=== PATIENT | female | born 1995 | race Caucasian/White ===

== ENCOUNTER 2020-08-25 08:35 | Emergency (ER) | payer MEDICAID, SELFPAY ==
--- NOTE | ~2020-08-25 | XR_ITS ---
EXAMINATION: XR CHEST CLINICAL INFORMATION: Cough. COMPARISON: 02/07/2014 TECHNIQUE: Frontal view of the chest was obtained. FINDINGS: No significant abnormality is noted involving the heart, lungs, mediastinum, bony thorax or soft tissues. XR/XR chest 1V IMPRESSION: Unremarkable chest examination.
[2020-08-25 08:50] VITALS: BP 129/94; PULSE 73; RESP 16; TEMP 36.9; O2SAT 98; BMI 20.9
[2020-08-25 09:51] LABS: COVID-19 Test Negative (Negative)
--- NOTE | 2020-08-25 09:58 | ED.URI ---
HPI - URI/Sore Throat General Chief Complaint: Upper Respiratory Symptoms <ZACHARIAH Earl Last Filed: 08/25/20 10:22> Stated Complaint: FLU SYMPTONS <ZACHARIAH Earl Last Filed: 08/25/20 10:22> Time Seen by Provider: 08/25/20 08:57 <ZACHARIAH Earl Last Filed: 08/25/20 10:22> Source: patient <ZACHARIAH Earl Last Filed: 08/25/20 10:22> Mode of arrival: ambulatory <ZACHARIAH Earl Last Filed: 08/25/20 10:22> History of Present Illness HPI Narrative: 25-year-old female with no significant past medical history presenting to the ED complaining of left ear pain, dry cough, diarrhea, myalgias, nausea, headache, rhinorrhea x4 weeks. Admits was tested for COVID-19 last week and negative. Did have COVID-19 positive contact. Denies fever, chills, recent travel, chest pain, shortness of breath <ZACHARIAH Earl Last Filed: 08/25/20 10:22> MD elicited complaint: sore throat and rhinorrhea <ZACHARIAH Earl Last Filed: 08/25/20 10:22> Related Data Home Medications: Previous Rx's Medication Instructions Recorded benzonatate [Tessalon Perles] 100 mg PO TID PRN #14 cap 08/25/20 fluticasone propionate [Flonase 2 spray INTRANASAL DAILY #16 g 08/25/20 Allergy Relief] <ZACHARIAH Earl Last Filed: 08/25/20 10:22> Allergies/Adverse Reactions: Allergies Allergy/AdvReac Type Severity Reaction Status Date / Time No Known Allergies Allergy Unverified 12/20/19 18:31 [No Known Allergies*] <ZACHARIAH Earl Last Filed: 08/25/20 10:22> Review of Systems Review of Systems: Constitutional: No Weight loss, No Fever, No Chills, No Fatigue, No Malaise ENT/Mouth: No Hearing loss, + Ear Pain, + Nasal Congestion, No Sinus Pain, No Hoarseness, + sore throat, + Rhinorrhea, No Swallowing Difficulty Eyes: No Eye Pain, No Swelling, No Redness, No Vision Changes Cardiovascular: No Chest Pain, No SOB, No Palpitations Respiratory: + Cough, No Sputum, No Wheezing Gastrointestinal: + Nausea, + Vomiting, No Diarrhea, No Constipation, No Abdominal pain Musculoskeletal: No joint pain, + Myalgias, No Joint Swelling Skin: No Skin Lesions, No rash Neuro: No Weakness, +Headache <ZACHARIAH Earl - Last Filed: 08/25/20 10:22> Yes all other systems are reviewed and are negative <AZCHARIAH Earl - Last Filed: 08/25/20 10:22> [facility] Past Medical History Attestation statement: The following information was validated with the patient. <ZACHARIAH Earl - Last Filed: 08/25/20 10:22> Social History Social History: Social History Advance Directives: Yes Advance Directives Information Provided: No Advance Directives on File: No Patient : No <ZACHARIAH Earl - Last Filed: 08/25/20 10:22> Physical Exam Vital Signs: Vital Signs: Last Vital Signs Temp 98.5 F 08/25/20 08:50 Pulse 73 08/25/20 08:50 Resp 16 08/25/20 08:50 BP 129/94 H 08/25/20 08:50 Pulse Ox 98 08/25/20 08:50 Body Mass Index 20.9 <ZACHARIAH Earl - Last Filed: 08/25/20 10:22> Vital Signs: Last Vital Signs Temp 98.5 F 08/25/20 08:50 Pulse 73 08/25/20 08:50 Resp 16 08/25/20 08:50 BP 129/94 H 08/25/20 08:50 Pulse Ox 98 08/25/20 08:50 Body Mass Index 20.9 <Doroteo Madison MD - Last Filed: 09/19/20 09:54> Const: General: cooperative, healthy appearing and no acute distress <ZACHARIAH Earl - Last Filed: 08/25/20 10:22> Orientation/consciousness: patient oriented x3 <ZACHARIAH Earl Last Filed: 08/25/20 10:22> Limitations: no limitations <ZACHARIAH Earl Last Filed: 08/25/20 10:22> HENMT: Head: Yes normal to inspection and Yes atraumatic <Yamilet Pal [facility] Last Filed: 08/25/20 10:22> Ears: hearing grossly normal bilaterally, external ears normal, TM's normal bilaterally and normal mastoids bilaterally <Yamilet Pal [facility] Last Filed: 08/25/20 10:22> General nose exam: Normal external nose present <Yamilet Pal [facility] Last Filed: 08/25/20 10:22> Face and sinus: Yes normal facial exam <Yamilet Pal [facility] Last Filed: 08/25/20 10:22> Mouth: Normal oral and palatal mucosa present <Yamilet Pal [facility] Last Filed: 08/25/20 10:22> Throat: Yes posterior oropharynx normal, Yes tonsils normal, Yes uvula midline, No peritonsillar mass, No uvula laterally displaced and No uvular edema <Yamilet Pal [facility] Last Filed: 08/25/20 10:22> Eyes: General: appearance normal, both eyes and all related structures <Yamilet Pal [facility] Last Filed: 08/25/20 10:22> EOM: EOMs intact bilaterally <Yamilet Pal [facility] Last Filed: 08/25/20 10:22> Neck: Neck: Yes normal visual inspection, Yes no lymphadenopathy and Yes no meningeal signs <Yamilet Pal [facility] Last Filed: 08/25/20 10:22> Resp: Effort & Inspection: normal respiratory effort <Yamilet Pal [facility] Last Filed: 08/25/20 10:22> Auscultation: clear to auscultation bilaterally, no rales, no rhonchi and no wheezes <Yamilet Pal [facility] Last Filed: 08/25/20 10:22> Cardio: Rate: regular rate <Yamilet Pal [facility] Last Filed: 08/25/20 10:22> Heart sounds: S1 normal heart sound present and S2 normal heart sound present <Yamilet Pal [facility] Last Filed: 08/25/20 10:22> Skin: Rashes: no rashes <Yamilet Pal [facility] Last Filed: 08/25/20 10:22> Wounds: no wounds <Yamilet Pal [facility] Last Filed: 08/25/20 10:22> Neuro: General: patient oriented x3 and no meningeal signs <ZACHARIAH Earl - Last Filed: 08/25/20 10:22> Gait exam (Neuro): Normal gait present <ZACHARIAH Earl - Last Filed: 08/25/20 10:22> Extrem: General: Yes normal to inspection <ZACHARIAH Earl - Last Filed: 08/25/20 10:22> Course Course Course Narrative: XR chest 1V IMPRESSION: Unremarkable chest examination. -1000--COVID-19 negative. Results discussed with patient including worrisome signs and symptoms and strict return precautions, she verbalized understanding feel safe for discharge home <ZACHARIAH Earl - Last Filed: 08/25/20 10:22> I have reviewed the chart <Doroteo Madison MD - Last Filed: 09/19/20 09:54> MDM - URI/Sore Throat MDM Narrative Medical decision making narrative: 25-year-old female with no significant past medical history presenting to the ED complaining of left ear pain, dry cough, diarrhea, myalgias, nausea, headache, rhinorrhea x4 weeks. On exam VSS, NAD/well-appearing, exam nonfocal. Concern for viral syndrome vs COVID-19. Unlikely pneumonia/PE/ACS. Exam not consistent with strep pharyngitis new line plan: COVID-19 testing, CXR <ZACHARIAH Earl - Last Filed: 08/25/20 10:22> Differential Diagnosis Differential diagnosis: Likely upper respiratory infection <ZACHARIAH Earl - Last Filed: 08/25/20 10:22> Lab Data Labs: Lab Results 08/25/20 Range/Units 08:54 COVID-19 (DINESH) Negative (Negative) COVID-19 Clin Com See Note <ZACHARIAH Earl - Last Filed: 08/25/20 10:22> Lab Results 08/25/20 Range/Units 08:54 COVID-19 (DINESH) Negative (Negative) COVID-19 Clin Com See Note <Doroteo Madison MD - Last Filed: 09/19/20 09:54> Discharge Plan Discharge Clinical Impression: Upper respiratory infection <ZACHARIAH Earl - Last Filed: 08/25/20 10:22> Patient Disposition: Home, Self-Care <ZACHARIAH Earl - Last Filed: 08/25/20 10:22> Instructions: Viral Syndrome (ED) <ZACHARIAH Earl - Last Filed: 08/25/20 10:22> Additional Instructions: Your COVID was negative Your Chest x-ray was unremarkable Rest, stay hydrated Tessalon Perles for cough, Flonase Allergy Relief will help with nasal congestion, follow-up with her doctor If her symptoms persist or worsen, you have fevers, cough becomes constant worsening return to the ED <ZACHARIAH Earl - Last Filed: 08/25/20 10:22> Prescriptions: New fluticasone propionate [Flonase Allergy Relief] 50 mcg/actuation spray,suspension 2 spray intranasal DAILY Qty: 16 RF: 0 benzonatate [Tessalon Perles] 100 mg capsule 100 mg PO TID PRN (Reason: cough) Qty: 14 RF: 0 <ZACHARIAH Earl - Last Filed: 08/25/20 10:22> Referrals: Physician,Unknown [Primary Care Provider] - 2 days <ZACHARIAH Earl - Last Filed: 08/25/20 10:22> Stand Alone Forms: Work/School Release <ZACHARIAH Earl - Last Filed: 08/25/20 10:22> Interventions: ED Discharge Assessment Last Done: 08/25/20 10:26 <ZACHARIAH Earl - Last Filed: 08/25/20 10:22> Discharge Date/Time: 08/25/20 10:54 <ZACHARIAH Earl - Last Filed: 08/25/20 10:22>
== END 2020-08-25 10:54 | disposition home or self-care (01) ==
PROVIDERS: Emergency Provider Emergency Medicine
DX: J06.9 Acute upper respiratory infection, unspecified (principal); Z20.822 Contact with and (suspected) exposure to COVID-19
CPT/HCPCS: 36415; 71045; 87635; 99283

== ENCOUNTER 2022-07-26 10:29 | Emergency (ER) | payer MEDICAID, SELFPAY ==
--- NOTE | ~2022-07-26 | XR_ITS ---
EXAMINATION: XR CHEST CLINICAL INFORMATION: Cough COMPARISON: Previous chest x-ray August 2020 TECHNIQUE: 2 views of the chest were obtained. FINDINGS: No significant abnormality is noted involving the heart, lungs, mediastinum, bony thorax or soft tissues. XR/XR chest 2V IMPRESSION: Unremarkable examination.
[2022-07-26 10:48] VITALS: BP 116/70; PULSE 92; RESP 18; TEMP 36.9; O2SAT 98; BMI 21.9
[2022-07-26 11:57] LABS: COVID-19 Test Negative (Negative); IDNOW Serial# 08D9AD1C
--- OUTSIDE RECORDS SUMMARY | 2022-07-26 16:53 | XMS_ITS | Continuity of Care Document ---
Author Name Unknown Organization [facility] Address Unknown Care Team Providers Care Car Hostler Name Role Phone Not on Staff, PCP Primary Care Physician Unavail able Encounter [facility] Date(s): 10/07/21 - [facility]/22/[facility] Attending Physician: Not on Staff, Attending MD Referring Physician: Charlotte Cartwright CNM Allergies, Adverse Reactions, Alerts Substance Reaction Severity Status Adhesive Bandage Active Immunizations Given and Recorded Vaccine Date Status Refusal Reason tetanus/diphtheria/pertussis, acel(Tdap) 03/25/20 Given Medications Depo-Provera Contraceptive 150 mg/mL intramuscular suspension 1 mL = 150 mg, Intramuscular, Every 3 months, # 1 mL, 4 Refills, Maintenance, 10/04/21 14:42:00 EDT, Suspension, [facility], Partial fill upon patient request if the prescription is for a schedule II opioid drug., 152, cm, 04/28/20 9:... Start Date: 10/04/21 Status: Ordered Depo-Provera Contraceptive 150 mg/mL intramuscular suspension 1 mL = 150 mg, Intramuscular, Every 3 months, # 1 mL, 3 Refills, Maintenance, 06/07/21 16:57:00 EST, Suspension, [facility], Partial fill upon patient request if the prescription is for a schedule II opioid drug., 152, cm, 04/28/20 9:... Start Date: 06/07/21 Stop Date: 06/02/22 Status: Ordered ferrous sulfate 325 mg oral tablet 1 tablet = 325 mg, By Mouth, 2 times a day, # 90 tablet, 1 Refills, Maintenance, 03/27/20 10:47:00 EST, Tablet, [facility]/pharmacy #[id number], 153, cm, 03/25/20 13:07:00 EST, Height, 53.2, kg, 03/24/20 14:22:00EST, Dry Weight Start Date: 03/27/20 Status: Ordered Freestyle Lite Lancets See Instructions, # 200 each, Refills 5, Tot. Refills 5, Maintenance, use QID to test blood sugars,03/06/20 10:29:00 EST, Supply, 153, cm, 03/06/20 9:52:00 EST, Height, 52.15, kg, 03/06/20 9:52:00 EST, Dry Weight Start Date: 03/06/20 Stop Date: 09/02/20 Status: Ordered Freestyle Lite Monitor See Instructions, # 1 each, Refills 0, Tot. Refills 0, Maintenance, use QID to test blood sugars, 03/06/20 10:29:00 EST, Supply, 153, cm, 03/06/20 9:52:00 EST, Height, 52.15, kg, 03/06/20 9:52:00 EST, Dry Weight Start Date: 03/06/20 Stop Date: 04/05/20 Status: Ordered Freestyle Lite Test Strips See Instructions, # 200 each, Refills 5, Tot. Refills 5, Maintenance, use QID to test blood sugars,03/06/20 10:29:00 EST, Supply, 153, cm, 03/06/20 9:52:00 EST, Height, 52.15, kg, 03/06/20 9:52:00 EST, Dry Weight Start Date: 03/06/20 Stop Date: 09/02/20 Status: Ordered Pepcid 20 mg oral tablet 1 tablet = 20 mg, By Mouth, 2 times a day, # 120 tablet, 0 Refills, Maintenance, 03/06/20 10:14:00 EST, Tablet, [facility]/pharmacy #[id number], Partial fill upon patient request if the prescription is for a schedule II opioid drug., 153, cm, 03/06/20 9:52:00 EST,... Start Date: 03/06/20 Stop Date: 05/05/20 Status: Ordered Prometrium 200 mg oral capsule 1 capsule = 200 mg, Vaginally, Daily at bedtime, # 30 capsule, 3 Refills, Maintenance, 03/27/20 10:53:00 EST, [id number], 153, cm, 03/25/20 13:07:00 EST, Height, 53.2, kg, 03/24/20 14:22:00 EST, Dry Weight Start Date: 03/27/20 Status: Ordered Rubbing Alcohol Wipes 70% topical pad See Instructions, Use QID to test blood sugars, # 1 each, 5 Refills, Maintenance, 03/06/20 10:29:00EST, [id number], Partial fill upon patient request, Use QID to test blood sugars, 153, cm, 03/06/20 9:52:00 EST, Height, 52.15, kg, 03/06/20 9:... 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
--- OUTSIDE RECORDS SUMMARY | 2022-07-26 16:53 | XMS_ITS | Continuity of Care Document ---
Author Name Unknown Organization [facility] Address [address] [place] [id number]- Care Team Providers Care Typing Teacher Name Role Phone Not on Staff, PCP Primary Care Physician Unavail able Encounter [facility] Date(s): 01/15/22 - 03/11/22 [facility] and [address] [address]- Attending Physician: Not on Staff, Attending MD Referring Physician: Mendy ARMSTRONG MRI TECHNICIAN, Bull Peterson Allergies, Adverse Reactions, Alerts Substance Reaction Severity Status Adhesive Bandage Active Immunizations Given and Recorded Vaccine Date Status Refusal Reason tetanus/diphtheria/pertussis, acel(Tdap) 03/25/20 Given Medications Depo-Provera Contraceptive 150 mg/mL intramuscular suspension 1 mL = 150 mg, Intramuscular, Every 3 months, # 1 mL, 4 Refills, Maintenance, 10/04/21 14:42:00 EDT, Suspension, [facility], Partial fill upon patient request if the prescription is for a schedule II opioid drug., 152, cm, 04/28/20 9:... Start Date: 10/04/21 Status: Ordered Depo-Provera Contraceptive 150 mg/mL intramuscular suspension 1 mL = 150 mg, Intramuscular, Every 3 months, # 1 mL, 3 Refills, Maintenance, 06/07/21 16:57:00 EST, Suspension, [facility], Partial fill upon patient request if the prescription is for a schedule II opioid drug., 152, cm, 04/28/20 9:... Start Date: 06/07/21 Stop Date: 06/02/22 Status: Ordered ferrous sulfate 325 mg oral tablet 1 tablet = 325 mg, By Mouth, 2 times a day, # 90 tablet, 1 Refills, Maintenance, 03/27/20 10:47:00 EST, Tablet, [facility]/pharmacy #[id number], 153, cm, 03/25/20 13:07:00 EST, Height, [...] 0 Refills, Maintenance, 03/06/20 10:14:00 EST, Tablet, [facility]/pharmacy #[id number], Partial fill upon patient request if [...] Date: 03/06/20 Status: Ordered Problem List Condition Confirmation Course Effective Dates Status Health St atus Informant Anemia 1 Confirmed Active Size of fetus inconsistent with dates in third trimester Confirmed Active with 32 completed weeks gestation Confirmed Active History of delivery 2, 3 Confirmed Active History of gestational diabetes Confirmed 2018 Active Anxiety and depression Confirmed Active hisotry of Post- depression Confirmed 2016 Active 1iron infusions with in past 2pprom 33+5 with at 34 wks on 04/03/2020 3Spontaneous at 36w per patient hx Social History Social History Type Response Smoking Status Never smoker; Tobacc o user in household: No entered on: 08/08/14 Sex Patient Care team information Care Team Personnel Name: Not on Staff, PCP Position: [facility] Physician (General Medicine) Member Role: PCP Name: Sara Alicea RN Position: [facility] OB RN Member Role: Primary Care Nurse Care Team Related Persons Name: PAO ALBERTO Address: [address] Address: [address] [place] [address] Name: PIERO CLOUD Name: SHAD CLOUD Address: [address] [place] [address] Name: BABATUNDE RAMIREZ Address: home [address] [place] [id number]
--- OUTSIDE RECORDS SUMMARY | 2022-07-26 16:53 | XMS_ITS | Continuity of Care Document ---
Author Name Unknown [facility] Address [address] [address]- Care Team Providers Care Glass Wool Blanket Machine Feeder Name Role Phone Not on Staff, PCP Primary Care Physician Unavail able Encounter [facility] Date(s): 03/31/20 - 04/30/20 [facility] [address] [address] Allergies, Adverse Reactions, Alerts Substance Reaction Severity Status Adhesive Bandage Active Immunizations Given and Recorded Vaccine Date Status Refusal Reason tetanus/diphtheria/pertussis, acel(Tdap) 03/25/20 Given Medications ferrous sulfate 325 mg oral tablet 1 tablet = 325 mg, By Mouth, 2 times a day, # 90 tablet, 1 Refills, Maintenance, 03/27/20 10:47:00 EST, Tablet, [id number], 153, cm, 03/25/20 13:07:00 EST, [...] 0 Refills, Maintenance, 03/06/20 10:14:00 EST, Tablet, [id number], Partial fill upon patient request if [...]
--- OUTSIDE RECORDS SUMMARY | 2022-07-26 16:53 | XMS_ITS | Continuity of Care Document ---
Author Name Unknown Organization [facility] Address [address] [place] [id number]- Care Team Providers Care Data Sme Name Role Phone Not on Staff, PCP Primary Care Physician Unavail able Encounter [facility] Date(s): 05/03/22 - 06/02/22 [facility] and [address] [address]- Attending Physician: Luis Herrera Admitting Physician: Luis Herrera Referring Physician: AdmtrLuis Allergies, Adverse Reactions, Alerts Substance Reaction Severity Status Adhesive Bandage Active Immunizations Given and Recorded Vaccine Date Status Refusal Reason tetanus/diphtheria/pertussis, acel(Tdap) 03/25/20 Given Medications Depo-Provera Contraceptive 150 mg/mL intramuscular suspension 1 mL = 150 mg, Intramuscular, Every 3 months, # 1 mL, 4 Refills, Maintenance, 10/04/21 14:42:00 EDT, Suspension, [facility], Partial fill upon patient request if the prescription is for a schedule II opioid drug., 152, cm, 04/28/20 9:... Start Date: 10/04/21 Status: Ordered Depo-Provera Contraceptive 150 mg/mL intramuscular suspension 1 mL = 150 mg, Intramuscular, Every 3 months, # 1 mL, 3 Refills, Maintenance, 06/07/21 16:57:00 EST, Suspension, [facility], Partial fill upon patient request if the prescription is for a schedule II opioid drug., 152, cm, 04/28/20 9:... Start Date: 06/07/21 Stop Date: 06/02/22 Status: Ordered ferrous sulfate 325 mg oral tablet 1 tablet = 325 mg, By Mouth, 2 times a day, # 90 tablet, 1 Refills, Maintenance, 03/27/20 10:47:00 EST, Tablet, [facility]/pharmacy #[id number], 153, cm, 03/25/20 13:07:00 EST, Height, [...] 0 Refills, Maintenance, 03/06/20 10:14:00 EST, Tablet, [facility]/pharmacy #[id number], Partial fill upon patient request if [...] Confirmed Active hisotry of Post- depression Confirmed 2017 Active 1iron infusions with in past 2pprom 33+5 with at 34 wks on 04/03/2020 3Spontaneous at 36w per patient hx Social History Social History Type Response Smoking Status Never smoker; Tobacc o user in household: No entered on: 08/08/14 Sex Patient Care team information Care Team Personnel Name: Not on Staff, PCP Position: [facility] Physician (General Medicine) Member Role: PCP Name: Sara Alicea RN Position: [facility] OB RN Member Role: Primary Care Nurse Care Team Related Persons Name: PAO ALBERTO Address: [address] Address: [address] [place] [address] Name: PIERO CLOUD Name: SHAD CLOUD Address: home [address] [facility] [place] [address] Name: BABATUNDE RAMIREZ Address: home [address] [place] [address]
--- OUTSIDE RECORDS SUMMARY | 2022-07-26 16:53 | XMS_ITS | Continuity of Care Document ---
Author Name Unknown Organization [facility] Address [address] [address]- Care Team Providers Care Superintendent Nonselling Name Role Phone Not on Staff, PCP Primary Care Physician Unavail able [facility]counter [facility] Date(s): 11/06/19 - 12/06/19 [facility] [address] [address]- [facility] Allergies, Adverse Reactions, Alerts Substance Reaction Severity Status Adhesive Bandage Active Medications Ensure Plus Ensure Plus, See Instructions, # 90 each, Refills 4, Tot. Refills 4, Maintenance, Three times per day, 11/28/19 16:31:00 EDT, Compound Start Date: 11/28/19 Status: Ordered Ensure Plus Ensure Plus, See Instructions, # 90 each, Refills 4, Tot. Refills 4, Maintenance, Three times per day, 12/04/19 16:11:00 EDT, Supply Start Date: 12/04/19 Status: Ordered Flintstones Complete Multiple Vitamins with Minerals oral tablet, chewable 1 tablet, Chew, 2 times a day, # 120 tablet, 3 Refills, Maintenance, 10/29/19 11:24:00 EDT, Chew Tablet, [id number], 1 tablet Chew 2 times a day,x60 days, 153, cm, 10/29/19 10:58:00 EDT, Height, 45, kg, 09/27/19 17:39:00 EDT, Dry Weight Start Date: 10/29/19 Stop Date: 06/25/20 Status: Ordered Flintstones Complete Multiple Vitamins with Minerals oral tablet, chewable 1 tablet, Chew, 2 times a day, # 60 tablet, 5 Refills, Maintenance, 11/14/19 14:07:00 EDT, Chew Tablet, [id number], 1 tablet Chew 2 times a day,x30 days, 153, cm, 11/14/19 13:48:00 EDT, Height, 44.4, kg, 11/14/19 13:48:00 EDT, Dry Weight Start Date: 11/14/19 Stop Date: 05/12/20 Status: Ordered promethazine 25 mg rectal suppository 1 supp = 25 mg, Rectally, Every 6 hours, PRN Nausea & Vomiting, # 15 supp, 1 Refills, Maintenance, 11/06/19 15:49:00 EDT, Suppository, [id number], 153, cm, 10/29/19 12:31:00 EDT, Height, 45, kg, 10/29/19 12:31:00 EDT, Dry Weight Start Date: 11/06/19 Status: Ordered Problem List Condition Effective Dates Status Health Status Inform ant Anemia(Confirmed) 1 Active History of gestational diabetes(Confirmed) 2019 Active Anxiety and depression(Confirmed) Active 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
--- OUTSIDE RECORDS SUMMARY | 2022-07-26 16:53 | XMS_ITS | Continuity of Care Document ---
Author Name Unknown Organization [facility] Address [address] [address]- Care Team Providers Care Customer Account Administrator Name Role Phone Not on Staff, PCP Primary Care Physician Unavail able [facility]): [facility] - 07[facility]27/20 [facility] [address] [address] Attending Physician: Luis Herrera Admitting Physician: AdmLuis lange Referring Physician: AdmtrLuis Allergies, Adverse Reactions, Alerts Substance Reaction Severity Status Adhesive Bandage Active Immunizations Given and Recorded Vaccine Date Status Refusal Reason tetanus/diphtheria/pertussis, acel(Tdap) 03/25/20 Given Medications Depo-Provera Contraceptive 150 mg/mL intramuscular suspension 1 mL = 150 mg, Intramuscular, Every 3 months, # 1 mL, 3 Refills, Maintenance, 06/07/21 16:57:00 EST, Suspension, [facility], Partial fill upon patient request if the prescription is for a schedule II opioid drug., 152, cm, 04/28/20 9:... Start Date: 06/07/21 Stop Date: 06/02/22 Status: Ordered Depo-Provera Contraceptive 150 mg/mL intramuscular suspension 1 mL = 150 mg, Intramuscular, Every 3 months, for 90 days, # 1 mL, 3 Refills, Hard Stop 06/07/21 16:57:00 EST, 06/12/20 16:57:00 EST, Suspension, [facility]/pharmacy #[id number], Partial fill upon patient requestif the prescription is for a schedule II opioid ty... Start Date: 06/12/20 Stop Date: 06/07/21 Status: Ordered ferrous sulfate 325 mg oral tablet 1 tablet = 325 mg, By Mouth, 2 times a day, # 90 tablet, 1 Refills, Maintenance, 03/27/20 10:47:00 EST, Tablet, [facility]/pharmacy #[id number], 153, cm, 03/25/20 13:07:00 [...] 0 Refills, Maintenance, 03/06/20 10:14:00 EST, Tablet, [facility]/pharmacy #[id number], Partial fill upon patient [...]
--- OUTSIDE RECORDS SUMMARY | 2022-07-26 16:53 | XMS_ITS | Continuity of Care Document ---
Author Name Unknown Organization [facility] Address [address] [address]- Care Team Providers Care Collar Stay Fuser Tender Name Role Phone Not on Staff, PCP Primary Care Physician Unavail able [facility]): 09[facility]27/19 - [facility]18/[facility] [address] [address]- [facility] Attending Physician: Not on Staff, Attending MD Referring Physician: Julianne Julian DO Allergies, Adverse Reactions, Alerts Substance Reaction Severity Status Adhesive Bandage Active Medications Flintstones Complete Multiple Vitamins with Minerals oral [...]
--- OUTSIDE RECORDS SUMMARY | 2022-07-26 16:53 | XMS_ITS | Continuity of Care Document ---
Author Name Unknown Organization [facility] Address [address] [address]- Care Team Providers Care Roof Designer Name Role Phone Not on Staff, PCP Primary Care Physician Unavail able [facility]counter [facility] Date(s): 12/17/19 - 01/16/20 [facility] [address] [place] [address]- [facility] Allergies, Adverse Reactions, Alerts Substance Reaction Severity Status Adhesive Bandage Active Problem List Condition Effective Dates Status Health Status Inform ant Anemia(Confirmed) 1 Active History of delivery( Confirmed) 2 Active History of gestational diabetes(Confirmed) 2019 Active Anxiety and depression(Confirmed) Active 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
--- OUTSIDE RECORDS SUMMARY | 2022-07-26 16:53 | XMS_ITS | Continuity of Care Document ---
Author Name Unknown Organization [facility] Address [address] [address]- Care Team Providers Care Training And Development Specialist Name Role Phone Not on Staff, PCP Primary Care Physician Unavail able [facility]s): 12/19/19 - 01/18/20 [facility] [address] [place] [address] [facility] Allergies, Adverse Reactions, Alerts Substance Reaction Severity Status Adhesive Bandage Active Medications Jocelin 250 mg/mL intramuscular solution = 250 mg, Intramuscular, Every week, for 13 week(s), # 4 each, 4 Refills, Acute 04/16/21 12:49:00 EST, 01/17/20 12:49:00 EDT, [facility], 153, cm, 01/15/20 16:25:00 EDT, Height, 47.9, kg, 01/15/20 16:17:00 EDT, Dry Weight Start Date: 01/17/20 Stop Date: 04/16/21 Status: Ordered Problem List Condition Effective Dates [...]
--- OUTSIDE RECORDS SUMMARY | 2022-07-26 16:53 | XMS_ITS | Continuity of Care Document ---
Author Name Unknown Organization [facility] Address [address] [address]- Care Team Providers Care Buffing Wheel Former Automatic Name Role Phone Not on Staff, PCP Primary Care Physician Unavail able [facility]s): 06/24/20 - 07/24/20 [facility] [address] [place] [address] Allergies, Adverse Reactions, Alerts Substance Reaction Severity Status Adhesive Bandage Active Immunizations Given and Recorded Vaccine Date Status Refusal Reason tetanus/diphtheria/pertussis, acel(Tdap) 03/25/20 Given Medications Depo-Provera Contraceptive 150 mg/mL intramuscular suspension 1 mL = 150 mg, Intramuscular, Every 3 months, # 1 mL, 3 Refills, Maintenance, 06/07/21 16:57:00 EST, Suspension, [facility], Partial fill upon patient request if the prescription is for a schedule II opioid drug., 152, cm, 04/28/20 9:... Start Date: 06/07/21 Stop Date: 06/02/22 Status: Ordered Depo-Provera Contraceptive 150 mg/mL intramuscular suspension 1 mL = 150 mg, Intramuscular, Every 3 months, for 90 days, # 1 mL, 3 Refills, Hard Stop 06/07/21 16:57:00 EST, 06/12/20 16:57:00 EST, Suspension, [facility]/pharmacy #[id number], Partial fill upon patient requestif the prescription [...] 0 Refills, Maintenance, 03/06/20 10:14:00 EST, Tablet, [facility]/pharmacy #[id number], Partial fill upon patient request [...]
--- OUTSIDE RECORDS SUMMARY | 2022-07-26 16:53 | XMS_ITS | Continuity of Care Document ---
Author Name Unknown Organization [facility] Address [address] [place] [address]- Care Team Providers Care Applications Analyst Name Role Phone Not on Staff, PCP Primary Care Physician Unavail able [facility] Date(s): 01/22/22 - 05/22/22 [facility] and [address] [address]- Attending Physician: Not on Staff, Attending MD Referring Physician: Not on Staff, Referring MD Allergies, Adverse Reactions, Alerts Substance Reaction Severity Status Adhesive Bandage Active Immunizations Given and Recorded Vaccine Date Status Refusal Reason tetanus/diphtheria/pertussis, acel(Tdap) 03/25/20 Given Medications Depo-Provera Contraceptive 150 mg/mL intramuscular suspension 1 mL = 150 mg, Intramuscular, Every 3 months, # 1 mL, 4 Refills, Maintenance, 10/04/21 14:42:00 EDT, Suspension, [facility], Partial fill upon patient request if the prescription is for a schedule II opioid drug., 152, cm, 04/28/20 9:... Start Date: 10/04/21 Status: Ordered Depo-Provera Contraceptive 150 mg/mL intramuscular suspension 1 mL = 150 mg, Intramuscular, Every 3 months, # 1 mL, 3 Refills, Maintenance, 06/07/21 16:57:00 EST, Suspension, [facility], Partial fill upon patient request if the prescription is for a schedule II opioid drug., 152, cm, 04/28/20 9:... Start Date: 06/07/21 Stop Date: 06/02/22 Status: Ordered ferrous sulfate 325 mg oral tablet 1 tablet = 325 mg, By Mouth, 2 times a day, # 90 tablet, 1 Refills, Maintenance, 03/27/20 10:47:00 EST, Tablet, [facility]/pharmacy #[id number], 153, cm, 03/25/20 13:07:00 EST, Height, [...] 0 Refills, Maintenance, 03/06/20 10:14:00 EST, Tablet, [facility]/pharmacy #[id number], Partial fill upon patient request if [...] Personnel Name: Not on Staff, PCP Position: [facility] Physician (General Medicine) Member Role: PCP Name: Sara Alicea RN Position: [facility] OB RN Member Role: Primary Care Nurse Care Team Related Persons Name: PAO ALBERTO Address: [address] Address: [address] [place] [address] Name: PIERO CLOUD Name: SHAD CLOUD Address: home [address] [place] [address] Name: BABATUNDE RAMIREZ Address: home [address] [place] [address]
--- OUTSIDE RECORDS SUMMARY | 2022-07-26 16:53 | XMS_ITS | Continuity of Care Document ---
Author Name Unknown Organization [facility] Address [address] [address]- Care Team Providers Care Ceramic Plater Name Role Phone Not on Staff, PCP Primary Care Physician Unavail able [facility] Date[facility]s): 06/09/20 - 07/09/20 [facility] [address] [place] [address] Allergies, Adverse Reactions, Alerts Substance Reaction Severity Status Adhesive Bandage Active Immunizations Given and Recorded Vaccine Date Status Refusal Reason tetanus/diphtheria/pertussis, acel(Tdap) 03/25/20 Given Medications Depo-Provera Contraceptive 150 mg/mL intramuscular suspension 1 mL = 150 mg, Intramuscular, Every 3 months, # 1 mL, 3 Refills, Maintenance, 06/07/21 16:57:00 EST, Suspension, [facility], Partial fill upon patient request if the prescription is for a schedule II opioid drug., 152, cm, 04/28/20 9:... Start Date: 06/07/21 Stop Date: 06/02/22 Status: Ordered Depo-Provera Contraceptive 150 mg/mL intramuscular suspension 1 mL = 150 mg, Intramuscular, Every 3 months, for 90 days, # 1 mL, 3 Refills, Hard Stop 06/07/21 16:57:00 EST, 06/12/20 16:57:00 EST, Suspension, [facility]/pharmacy #[id number], Partial fill upon patient requestif the [...] 0 Refills, Maintenance, 03/06/20 10:14:00 EST, Tablet, [facility]/pharmacy #[id number], Partial fill upon patient request if [...]
--- OUTSIDE RECORDS SUMMARY | 2022-07-26 16:53 | XMS_ITS | Continuity of Care Document ---
Author Name Unknown Organization [facility] Address [address] [address]- Care Team Providers Care Rural Sociologist Name Role Phone Not on Staff, PCP Primary Care Physician Unavail able [facility] Date(s): 03/24/20 - 04/23/20 [facility] [address] [address] Allergies, Adverse Reactions, Alerts Substance Reaction Severity [...] weeks gestation(Confirmed) Active History of delivery( Confirmed) 2 Active History of gestational diabetes(Confirmed) 2019 Active Anxiety and depression(Confirmed) Active 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
--- OUTSIDE RECORDS SUMMARY | 2022-07-26 16:53 | XMS_ITS | Continuity of Care Document ---
Author Name Unknown Organization [facility] Address [address] [address]- Care Team Providers Care Cosmetic Manager Name Role Phone Not on Staff, PCP Primary Care Physician Unavail able [facility] Date[facility]s): 12/06/19 - 01/05/20 [facility] [address] [address]- [facility] Attending Physician: Luis Herrera Admitting Physician: Luis [...]
--- OUTSIDE RECORDS SUMMARY | 2022-07-26 16:54 | XMS_ITS | Continuity of Care Document ---
Author Name Unknown Organization [facility] Address [address] [address]- Care Team Providers Care Fund Development Manager Name Role Phone Not on Staff, PCP Primary Care Physician Unavail able [facility]counter [facility] Date(s): 11/14/19 - 01/11/20 [facility] [address] [address]- [facility] Attending Physician: Not on Staff, Attending MD Referring Physician: Elena Valle CNM Allergies, Adverse Reactions, Alerts Substance Reaction [...]
--- OUTSIDE RECORDS SUMMARY | 2022-07-26 16:54 | XMS_ITS | Continuity of Care Document ---
Author Name Unknown [facility] Address [address] [address]- Care Team Providers Care Geotechnical Intern Name Role Phone Not on Staff, PCP Primary Care Physician Unavail able [facility] Date(s): 03/25/20 - 04/24/20 [facility] and [facility] [address] [address] Attending Physician: Luis Herrera Admitting Physician: AdmtrLuis Referring Physician: AdmtrLuis Allergies, Adverse Reactions, Alerts [...] 0 Refills, Maintenance, 03/06/20 10:14:00 EST, Tablet, [facility]/pharmacy #[id number], Partial fill upon patient request if [...]
--- OUTSIDE RECORDS SUMMARY | 2022-07-26 16:54 | XMS_ITS | Continuity of Care Document ---
Author Name Unknown Organization [facility] Address [address] [place] [address]- Care Team Providers Care Train Operator Name Role Phone Not on Staff, PCP Primary Care Physician Unavail able [facility] Date(s): 04/22/22 - 05/22/22 [facility] and [address] [address]- Allergies, Adverse Reactions, Alerts Substance Reaction Severity Status Adhesive Bandage Active Immunizations Given and Recorded Vaccine Date Status Refusal Reason tetanus/diphtheria/pertussis, acel(Tdap) 03/25/20 Given Medications Depo-Provera Contraceptive 150 mg/mL intramuscular suspension 1 mL = 150 mg, Intramuscular, Every 3 months, # 1 mL, 4 Refills, Maintenance, 10/04/21 14:42:00 EDT, Suspension, [facility], Partial fill upon patient request if the prescription is for a schedule II opioid drug., 152, cm, 04/28/20 9:... Start Date: 10/04/21 Status: Ordered Depo-Provera Contraceptive 150 mg/mL intramuscular suspension 1 mL = 150 mg, Intramuscular, Every 3 months, # 1 mL, 3 Refills, Maintenance, 06/07/21 16:57:00 EST, Suspension, [facility], Partial fill upon patient request if the prescription is for a schedule II opioid drug., 152, cm, 04/28/20 9:... Start Date: 06/07/21 Stop Date: 06/02/22 Status: Ordered ferrous sulfate 325 mg oral tablet 1 tablet = 325 mg, By Mouth, 2 times a day, # 90 tablet, 1 Refills, Maintenance, 03/27/20 10:47:00 EST, Tablet, [facility]/pharmacy #[id number], 153, cm, 03/25/20 13:07:00 [...] 0 Refills, Maintenance, 03/06/20 10:14:00 EST, Tablet, [facility]/pharmacy #[id number], Partial fill upon patient [...] Personnel Name: Not on Staff, PCP Position: [facility] Physician (General Medicine) Member Role: PCP Name: Sara Alicea RN Position: [facility] OB RN Member Role: Primary Care Nurse Care Team Related Persons Name: PAO ALBERTO Address: [address] Address: [address] [place] [address] Name: PIERO CLOUD Name: SHAD CLOUD Address: [address] [place] [address] Name: BABATUNDE RAMIREZ Address: [address] [address]
--- OUTSIDE RECORDS SUMMARY | 2022-07-26 16:54 | XMS_ITS | Continuity of Care Document ---
Author Name Unknown [facility] Address Unknown Care Team Providers Care Evaporative Cooler Installer Name Role Phone Not on Staff, PCP Primary Care Physician Unavail able Encounter [facility] Date(s): 06/22/21 - 07/25/21 [facility] Attending Physician: Not on Staff, Attending MD Referring Physician: Magdalena Koch CNM Allergies, Adverse Reactions, Alerts Substance Reaction Severity Status Adhesive Bandage Active Immunizations Given and Recorded Vaccine Date Status Refusal Reason tetanus/diphtheria/pertussis, acel(Tdap) 03/25/20 Given Medications Depo-Provera Contraceptive 150 mg/mL intramuscular suspension 1 mL = 150 mg, Intramuscular, Every 3 months, # 1 mL, 3 Refills, Maintenance, 06/07/21 16:57:00 EST, Suspension, [facility], Partial fill upon patient [...] Refills, Maintenance, 03/06/20 10:14:00 EST, Tablet, [facility]/pharmacy #[id number], Partial fill upon patient request [...]
--- OUTSIDE RECORDS SUMMARY | 2022-07-26 16:54 | XMS_ITS | Continuity of Care Document ---
Author Name Unknown [facility] Address Unknown Care Team Providers Care Radiological Technician Name Role Phone Not on Staff, PCP Primary Care Physician Unavail able Encounter [facility] Date(s): 06/22/21 - 07/22/21 [facility] Allergies, Adverse Reactions, Alerts Substance Reaction Severity Status Adhesive Bandage Active Immunizations Given and Recorded Vaccine Date Status Refusal Reason tetanus/diphtheria/pertussis, acel(Tdap) 03/25/20 Given Medications Depo-Provera Contraceptive 150 mg/mL intramuscular suspension 1 mL = 150 mg, Intramuscular, Every 3 months, # 1 mL, 3 Refills, Maintenance, 06/07/21 16:57:00 EST, Suspension, [facility], Partial fill upon patient request if the prescription is for a schedule II opioid drug., 152, cm, 04/28/20 9:... Start Date: 06/07/21 Stop Date: 06/02/22 Status: Ordered ferrous sulfate 325 mg oral tablet 1 tablet = 325 mg, By Mouth, 2 times a day, # 90 tablet, 1 Refills, Maintenance, 03/27/20 10:47:00 EST, Tablet, [facility]/pharmacy #[id number], 153, cm, 03/25/20 13:07:00 EST, [...]
--- OUTSIDE RECORDS SUMMARY | 2022-07-26 16:54 | XMS_ITS | Continuity of Care Document ---
Author Name Unknown Organization [facility] Address [address] [place] [address]- Care Team Providers Care Health Informatics Specialist Name Role Phone Not on Staff, PCP Primary Care Physician Unavail able [facility] Date(s): 04/22/22 - 06/02/22 [facility] and [address] [address]- Attending Physician: Not on Staff, Attending MD [...] 4 Refills, Maintenance, 10/04/21 14:42:00 EDT, Suspension, [facility], Partial fill upon patient request if the prescription is for a schedule II opioid drug., 152, cm, 04/28/20 9:... Start Date: 10/04/21 Status: Ordered Depo-Provera Contraceptive 150 mg/mL intramuscular suspension 1 mL = 150 mg, Intramuscular, Every 3 months, # 1 mL, 3 Refills, Maintenance, 06/07/21 16:57:00 EST, Suspension, [facility], Partial fill upon patient request if the prescription is for a schedule II opioid drug., 152, cm, 04/28/20 9:... Start Date: 06/07/21 Stop Date: 06/02/22 Status: Ordered ferrous sulfate 325 mg oral tablet 1 tablet = 325 mg, By Mouth, 2 times a day, # 90 tablet, 1 Refills, Maintenance, 03/27/20 10:47:00 EST, Tablet, [facility]/pharmacy #[id number], 153, cm, 03/25/20 13:07:00 EST, [...] 0 Refills, Maintenance, 03/06/20 10:14:00 EST, Tablet, [facility]/pharmacy #[id number], Partial fill upon patient request [...] Personnel Name: Not on Staff, PCP Position: [facility] Physician (General Medicine) Member Role: PCP Name: Sara Alicea RN Position: [facility] OB RN Member Role: Primary Care Nurse Care Team Related Persons Name: PAO ALBERTO Address: [address] Address: [address] [place] [address] Name: PEIRO CLOUD Name: SHAD CLOUD Address: [address] [place] [address] Name: BABATUNDE RAMIREZ Address: home [address] [place] [address]
--- OUTSIDE RECORDS SUMMARY | 2022-07-26 16:54 | XMS_ITS | Continuity of Care Document ---
Author Name Unknown [facility] Address Unknown Care Team Providers Care Software Configuration Specialist Name Role Phone Not on Staff, PCP Primary Care Physician Unavail able Encounter [facility] Date(s): 12/17/20 - 01/21/21 [facility] Attending Physician: Not on Staff, Attending MD Referring Physician: Charlotte Koehler CNM Allergies, Adverse Reactions, Alerts Substance Reaction Severity Status Adhesive Bandage Active Immunizations Given and Recorded Vaccine Date Status Refusal Reason tetanus/diphtheria/pertussis, acel(Tdap) 03/25/20 Given Medications Depo-Provera Contraceptive 150 mg/mL intramuscular suspension 1 mL = 150 mg, Intramuscular, Every 3 months, # 1 mL, 3 Refills, Maintenance, 06/07/21 16:57:00 EST, Suspension, [facility], Partial fill upon patient request if the prescription is for a schedule II opioid drug., 152, cm, 04/28/20 9:... Start Date: 06/07/21 Stop Date: 06/02/22 Status: Ordered Depo-Provera Contraceptive 150 mg/mL intramuscular suspension 1 mL = 150 mg, Intramuscular, Every 3 months, for 90 days, # 1 mL, 3 Refills, Hard Stop 06/07/21 16:57:00 EST, 06/12/20 16:57:00 EST, Suspension, [facility]/pharmacy #[id number], Partial fill upon patient requestif the prescription [...] 0 Refills, Maintenance, 03/06/20 10:14:00 EST, Tablet, [facility]/pharmacy #[id number], Partial fill upon patient request if the prescription is for a schedule II opioid drug., 153, cm, 03/06/20 9:52:00 EST,... Start Date: 03/06/20 Stop Date: 05/05/20 Status: Ordered Prometrium 200 mg oral capsule 1 capsule = 200 mg, Vaginally, Daily at bedtime, # 30 capsule, 3 Refills, Maintenance, 03/27/20 10:53:00 EST, [facility]/pharmacy #[id number], 153, cm, 03/25/20 13:07:00 EST, [...]
--- OUTSIDE RECORDS SUMMARY | 2022-07-26 16:54 | XMS_ITS | Continuity of Care Document ---
Author Name Unknown Organization [facility] Ray [facility]ins [facility] Address [address], [address] [place] [address]- Care Team Providers Care Boarding Mother Name Role Phone Not on Staff, PCP Primary Care Physician Unavail able Encounter [facility] Date(s): 03/27/20 - 04/03/20 [facility] Mongoluis MaxwellCinemacraft[facility] [address], [address]th [place] [address]- Attending Physician: Allan Marcial MD Admitting Physician: Berkley Perez MD Referring Physician: Taya Owen CNM Allergies, Adverse Reactions, Alerts Substance Reaction [...] 0 Refills, Maintenance, 03/06/20 10:14:00 EST, Tablet, [facility]/pharmacy #[id number], Partial fill upon patient [...] 03/06/20 9:... Start Date: 03/06/20 Status: Ordered Tylenol Extra Strength 500 mg oral tablet 1 tablet = 500 mg, By Mouth, Every 4 hours, PRN as needed for pain, # 24 tablet, 1 Refills, Maintenance, 01/23/20 16:43:00 EDT, Tablet, [id number], 153, cm, 01/23/20 14:30:00 EDT, Height, 47.9, kg, 01/15/20 16:17:00 EDT, Dry Weight Start Date: 01/23/20 Status: Ordered Problem List Condition Effective Dates Status Health Status Inform ant Anemia(Confirmed) 1 Active Size of fetus inconsistent w ith dates in third trimester(Confirmed) Active with 32 completed weeks gestation(Confirmed) Active H/O: depression(Confirmed) 2 03/24/20 Active History of delivery( Confirmed) 3 Active History of gestational diabetes(Confirmed) 2019 Active Anxiety and depression(Confirmed) Active 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
--- OUTSIDE RECORDS SUMMARY | 2022-07-26 16:54 | XMS_ITS | Continuity of Care Document ---
Author Name Unknown Organization [facility] Address Unknown Care Team Providers Care Varnish Blender Name Role Phone Not on Staff, PCP Primary Care Physician Unavail able [place] [facility] Date(s): 12/25/20 - 04/16/21 [facility] Attending Physician: Not on Staff, Attending [...] 3 Refills, Maintenance, 06/07/21 16:57:00 EST, Suspension, [facility], Partial fill upon [...] 0 Refills, Maintenance, 03/06/20 10:14:00 EST, Tablet, [facility]/pharmacy #[id number], Partial fill upon patient request if [...]
--- OUTSIDE RECORDS SUMMARY | 2022-07-26 16:54 | XMS_ITS | Continuity of Care Document ---
Author Name Unknown Organization [facility] Address [address] [address]- Care Team Providers Care Route Sales Trainee Name Role Phone Not on Staff, PCP Primary Care Physician Unavail able [facility] Date(s): 04/07/20 - 06/18/20 [facility] [address] [place] [address] Attending Physician: Not on Staff, Attending MD Referring Physician: Ashley Friedman CNM Allergies, Adverse Reactions, Alerts Substance Reaction Severity Status Adhesive Bandage Active Immunizations Given and Recorded Vaccine Date Status Refusal Reason tetanus/diphtheria/pertussis, acel(Tdap) 03/25/20 Given Medications Depo-Provera Contraceptive 150 mg/mL intramuscular suspension 1 mL = 150 mg, Intramuscular, Every 3 months, # 1 mL, 3 Refills, Maintenance, 06/12/20 16:57:00 EST, Suspension, [id number], Partial fill upon patient request if the prescription is for a schedule II opioid drug., 152, cm, 04/28/20 9:24:00 EST... Start Date: 06/12/20 Stop Date: 06/07/21 Status: [...] 0 Refills, Maintenance, 03/06/20 10:14:00 EST, Tablet, [facility]/pharmacy #[id number], Partial fill upon [...]
--- OUTSIDE RECORDS SUMMARY | 2022-07-26 16:54 | XMS_ITS | Continuity of Care Document ---
Author Name Unknown Organization [facility] Address [address] [place] [address]- Care Team Providers Care Elevator Supervisor Name Role Phone Not on Staff, PCP Primary Care Physician Unavail able Encounter [facility] Date(s): 09/24/19 - 11/17/[address] [address]- [facility] Attending Physician: Not on Staff, Attending MD [...]
--- OUTSIDE RECORDS SUMMARY | 2022-07-26 16:54 | XMS_ITS | Continuity of Care Document ---
Author Name Unknown Organization [facility] ter Address [address] [place] [address]- Care Team Providers Care Bessemer Converter Operator Name Role Phone Not on Staff, PCP Primary Care Physician Unavail able Encounter [facility] Date(s): 10/11/21 - 10/11/[address] [address]- Discharge Disposition: A-Error Chart/Home (ED Only) Attending Physician: Not on Staff, Attending MD Admitting Physician: Not on Staff, Admitting MD Referring Physician: Not on Staff, Referring MD Allergies, Adverse Reactions, Alerts Substance Reaction Severity Status Adhesive Bandage Active Immunizations Given and Recorded Vaccine Date Status Refusal Reason tetanus/diphtheria/pertussis, acel(Tdap) 03/25/20 Given Medications Depo-Provera Contraceptive 150 mg/mL intramuscular suspension 1 mL = 150 mg, Intramuscular, Every 3 months, # 1 mL, 4 Refills, Maintenance, 10/04/21 14:42:00 EDT, Suspension, [facility], Partial fill upon patient request if the prescription is for a schedule II opioid drug., 152, cm, 04/28/20 9:... Start Date: 10/04/21 Status: Ordered Depo-Provera Contraceptive 150 mg/mL intramuscular suspension 1 mL = 150 mg, Intramuscular, Every 3 months, # 1 mL, 3 Refills, Maintenance, 06/07/21 16:57:00 EST, Suspension, [facility], Partial fill upon patient request if the prescription is for a schedule II opioid drug., 152, cm, 04/28/20 9:... Start Date: 06/07/21 Stop Date: 06/02/22 Status: Ordered ferrous sulfate 325 mg oral tablet 1 tablet = 325 mg, By Mouth, 2 times a day, # 90 tablet, 1 Refills, Maintenance, 03/27/20 10:47:00 EST, Tablet, [facility]/pharmacy #[id number], 153, cm, 03/25/20 [...] 0 Refills, Maintenance, 03/06/20 10:14:00 EST, Tablet, [facility]/pharmacy #[id number], Partial fill upon [...]
--- OUTSIDE RECORDS SUMMARY | 2022-07-26 16:54 | XMS_ITS | Continuity of Care Document ---
Author Name Unknown Organization [facility] Address [address] [address]- Care Team Providers Care Price Checker Name Role Phone Not on Staff, PCP Primary Care Physician Unavail able Encounter [facility] Date(s): 09/22/20 - 10/23/20 [facility] [address] [address]- Attending Physician: Not on Staff, Attending MD Referring Physician: Magdalena Koch CNM Allergies, Adverse Reactions, Alerts Substance Reaction Severity Status Adhesive Bandage Active Immunizations Given and Recorded Vaccine Date Status Refusal Reason tetanus/diphtheria/pertussis, acel(Tdap) 03/25/20 Given Medications Depo-Provera Contraceptive 150 mg/mL intramuscular suspension 1 mL = 150 mg, Intramuscular, Every 3 months, # 1 mL, 3 Refills, Maintenance, 06/07/21 16:57:00 EST, Suspension, [facility], Partial fill upon patient request if the prescription is for a schedule II opioid drug., 152, cm, 04/28/20 9:... Start Date: 06/07/21 Stop Date: 06/02/22 Status: Ordered Depo-Provera Contraceptive 150 mg/mL intramuscular suspension 1 mL = 150 mg, Intramuscular, Every 3 months, for 90 days, # 1 mL, 3 Refills, Hard Stop 06/07/21 16:57:00 EST, 06/12/20 16:57:00 EST, Suspension, [facility]/pharmacy #[id number], Partial fill upon patient requestif the prescription is for a schedule II opioid ty... Start Date: 06/12/20 Stop Date: 06/07/21 Status: Ordered ferrous sulfate 325 mg oral tablet 1 tablet = 325 mg, By Mouth, 2 times a day, # 90 tablet, 1 Refills, Maintenance, 03/27/20 10:47:00 EST, Tablet, [facility]/pharmacy #[id number], 153, cm, 03/25/20 13:07:00 EST, [...] Refills, Maintenance, 03/06/20 10:14:00 EST, Tablet, [facility]/pharmacy #[id number], Partial fill upon patient request [...]
--- OUTSIDE RECORDS SUMMARY | 2022-07-26 16:54 | XMS_ITS | Continuity of Care Document ---
Author Name Unknown Organization [facility] Address [address] [place] [address]- Care Team Providers Care Bag End Sewer Name Role Phone Not on Staff, PCP Primary Care Physician Unavail able Encounter [facility] Date(s): 02/09/22 - 03/11/22 [facility] and [address] [address] Attending Physician: Luis Herrera Admitting Physician: AdmLuis lange Referring Physician: AdmtrLuis Allergies, Adverse Reactions, Alerts Substance Reaction Severity Status Adhesive Bandage Active Immunizations Given and Recorded Vaccine Date Status Refusal Reason tetanus/diphtheria/pertussis, acel(Tdap) 03/25/20 Given Medications Depo-Provera Contraceptive 150 mg/mL intramuscular suspension 1 mL = 150 mg, Intramuscular, Every 3 months, # 1 mL, 4 Refills, Maintenance, 10/04/21 14:42:00 EDT, Suspension, [facility], Partial fill upon patient request if the prescription is for a schedule II opioid drug., 152, cm, 04/28/20 9:... Start Date: 10/04/21 Status: Ordered Depo-Provera Contraceptive 150 mg/mL intramuscular suspension 1 mL = 150 mg, Intramuscular, Every 3 months, # 1 mL, 3 Refills, Maintenance, 06/07/21 16:57:00 EST, Suspension, [facility], Partial fill upon patient request if the prescription is for a schedule II opioid drug., 152, cm, 04/28/20 9:... Start Date: 06/07/21 Stop Date: 06/02/22 Status: Ordered ferrous sulfate 325 mg oral tablet 1 tablet = 325 mg, By Mouth, 2 times a day, # 90 tablet, 1 Refills, Maintenance, 03/27/20 10:47:00 EST, Tablet, [facility]/pharmacy #[id number], 153, cm, 03/25/20 [...] 0 Refills, Maintenance, 03/06/20 10:14:00 EST, Tablet, [facility]/pharmacy #[id number], Partial fill upon [...] Personnel Name: Not on Staff, PCP Position: [facility] Physician (General Medicine) Member Role: PCP Name: Sara Alicea RN Position: [facility] OB RN Member Role: Primary Care Nurse Care Team Related Persons Name: PAO ALBERTO Address: [address] Address: [address] [place] [address] Name: PIERO CLOUD Name: SHAD CLOUD Address: [address] [place] [address] Name: BABATUNDE RAMIREZ Address: home [address] [place] [address]
--- OUTSIDE RECORDS SUMMARY | 2022-07-26 16:54 | XMS_ITS | Continuity of Care Document ---
Author Name Unknown Organization [facility] Address [address] [facility] [address], [address] [place] [address]- Care Team Providers Care Construction Sales Representative Name Role Phone Not on Staff, PCP Primary Care Physician Unavail able [facility] Date(s): 03/25/20 - [facility] [address] [facility], [address]th [place] [address]- Attending Physician: Ana ROCHE, Berkley Aguila Referring Physician: Taya Owen CNM Allergies, Adverse [...] 0 Refills, Maintenance, 03/06/20 10:14:00 EST, Tablet, [facility]/pharmacy #[id number], Partial fill upon patient [...]
--- OUTSIDE RECORDS SUMMARY | 2022-07-26 16:54 | XMS_ITS | Continuity of Care Document ---
Author Name Unknown Organization [facility] ter Address [address] [place] [address]- Care Team Providers Care Reconciliation Machine Operator Name Role Phone Not on Staff, PCP Primary Care Physician Unavail able Encounter [facility] Date(s): 03/30/20 - 04/05/[address] [address]- Discharge Disposition: A-D/C Home Attending Physician: Og Hdez MD Admitting Physician: Og Hdez MD Referring Physician: Og Hdez MD Allergies, Adverse Reactions, Alerts Substance Reaction Severity Status Adhesive Bandage Active Immunizations Given and Recorded Vaccine Date Status Refusal Reason tetanus/diphtheria/pertussis, acel(Tdap) 03/25/20 Given Medications acetaminophen 325 mg oral tablet 650 mg, Tablet, By Mouth, Every 6 hours, PRN for Headache, Routine, 04/02/20 1:31:00 EST Start Date: 04/02/20 Stop Date: 04/05/20 Status: Discontinued ferrous sulfate 325 mg oral tablet 1 [...] Date: 03/06/20 Stop Date: 09/02/20 Status: Ordered ibuprofen 600 mg oral tablet 600 mg, 1, tablet, By Mouth, Every 6 hours, for 10 days, # 40 tablet, Refills 0, Tot. Refills 0, Acute 04/15/20 12:42:00 EST, 04/05/20 12:42:00 EST, Route to Pharmacy Electronically, [facility]/pharmacy #[id number], Partial fill upon patient request if the prescri... Start Date: 04/05/20 Stop Date: 04/15/20 Status: Ordered Ibuprofen Tablet 800 mg, Tablet, By Mouth, Every 8 hours, PRN for Pain , Moderate, (4-6), may give 400mg per patientpreference and re-dose with 400mg within 8 hours if needed. Patient should only receive a total of 800mg of Ibuprofen every 8 hours., Routine, ... Start Date: 04/03/20 Stop Date: 04/05/20 Status: Discontinued Pepcid 20 mg oral tablet 1 tablet = 20 mg, By Mouth, 2 times a day, # 120 tablet, 0 Refills, Maintenance, 03/06/20 10:14:00 EST, Tablet, [facility]/pharmacy #[id number], Partial fill upon patient request [...] 9:... Start Date: 03/06/20 Status: Ordered Tylenol 325 mg oral capsule 1 capsule = 325 mg, By Mouth, Every 4 hours, PRN as needed for pain, for 10 days, # 40 capsule, 0 Refills, Acute 04/15/20 12:42:00 EST, 04/05/20 12:42:00 EST, Capsule, [id number], Partial fill upon patient request if the prescription is for a... Start Date: 04/05/20 Stop Date: 04/15/20 Status: Ordered Problem List Condition Effective Dates [...] past 2Spontaneous at 36w per patient hx Vital Signs Most recent to oldest [Reference Range]: 1 2 3 Height 152 cm (04/05/20 9:28 AM) 152 cm (04/05/20 12:00 AM) 152 cm (04/04/20 4:00 PM) Weight 53 kg (03/30/20 9:25 PM) 53.0 kg (03/30/20 7:08 PM) Oxygen Saturation [94-100 %] 97 % (04/05/20 9:28 AM) 100 % (04/05/20 12:00 AM) 98 % (04/04/20 4:00 PM) Pulse Rate [55-90 bpm] 63 bpm (04/05/20 9:28 AM) 76 bpm (04/05/20 12:00 AM) 68 bpm (04/04/20 4:00 PM) Body Mass Index [18.5-24.99] 22.94 (03/30/20 9:25 PM) Blood Pressure [90-138/55-84 mm Hg] 93/54mm Hg (04/05/20 9:28 AM) 115/55mm Hg (04/05/20 12:00 AM) 90/46mm Hg (04/04/20 4:00 PM) Respiratory Rate [16-30 br/min] 16 br/min (04/05/20 9:28 AM) 18 br/min (04/05/20 6:54 AM) 18 br/min (04/05/20 6:54 AM) Temperature [96.8-100.4 DegF] 98.6 DegF (04/05/20 12:00 AM) 98.0 DegF (04/04/20 4:00 PM) 97.7 DegF (04/04/20 8:00 AM) Mode of Delivery (Oxygen) Room air (04/05/20 12:00 AM) Room air (04/04/20 4:00 PM) Room air (04/04/20 8:00 AM) Blood pressure sites Arm, left (04/05/20 9:28 AM) Arm, left (04/05/20 12:00 AM) Arm, right (04/04/20 4:00 PM) Temperature Route Oral (04/05/20 12:00 AM) Oral (04/04/20 4:00 PM) Oral (04/04/20 8:00 AM) Dry Weight 53 kg (03/30/20 9:25 PM) 53.0 kg (03/30/20 7:08 PM) Weight Obtained Via Standing scale (03/30/20 7:08 PM) Social History Social History Type Response Smoking Status Never smoker; Tobacc o user in household: No entered on: 08/08/14 Sex
--- OUTSIDE RECORDS SUMMARY | 2022-07-26 16:54 | XMS_ITS | Continuity of Care Document ---
Author Name Unknown Organization [facility] Ray [facility] Address [address] [place] [address], [address] [place] [address]- Care Team Providers Care Senior Internal Auditor Name Role Phone Not on Staff, PCP Primary Care Physician Unavail able Encounter [facility] Date(s): 01/17/20 - 01/24/20 [facility] [place] [facility] [address] [facility]th [place] [address]- [facility] Attending Physician: Juana Hassan MD Referring Physician: Sheeba Dos Santos CNM Allergies, Adverse Reactions, Alerts Substance Reaction Severity Status Adhesive Bandage Active Medications ferrous sulfate 325 mg oral tablet 1 tablet = 325 mg, By Mouth, Daily, # 90 tablet, 1 Refills, Maintenance, 01/23/20 16:44:00 EDT, Tablet, [id number], 153, cm, 01/23/20 14:30:00 EDT, Height, 47.9, kg, 01/15/20 16:17:00 EDT, Dry Weight Start Date: 01/23/20 Status: Ordered [place] 250 mg/mL intramuscular solution = 250 mg, Intramuscular, Every week, for 13 week(s), # 4 each, 4 Refills, Acute 04/16/21 12:49:00 EST, 01/17/20 12:49:00 EDT, [facility], 153, cm, 01/15/20 16:25:00 EDT, Height, 47.9, kg, 01/15/20 16:17:00 EDT, Dry Weight Start Date: 01/17/20 Stop Date: 04/16/21 Status: Ordered progesterone 200 mg vaginal suppository 1 supp = 200 mg, Vaginally, Daily, remove cap from suppository before use. Insert at Night., # 30 supp, 3 Refills, Maintenance, 01/23/20 16:41:00 EDT, Suppository, [id number], 153, cm, 01/23/20 14:30:00 EDT, Height, 47.9, kg, 01/15/20 16:17:00... Start Date: 01/23/20 Status: Ordered Robitussin Cough + Chest Congestion DM 20 mg-200 mg/20 mL oral liquid 20 mL, By Mouth, Every 4 hours, PRN as needed for cough, not to exceed 6 doses/day, # 120 mL, 0 Refills, Maintenance, 01/23/20 16:43:00 EDT, Liquid, [id number], 20 mL By Mouth Every 4 hours,PRN:as needed for cough,Instr:not to exceed 6 doses/d... Start Date: 01/23/20 Status: Ordered Tylenol Extra Strength 500 mg oral tablet 1 tablet = 500 mg, By Mouth, Every 4 hours, PRN as needed for pain, # 24 tablet, 1 Refills, Maintenance, 01/23/20 16:43:00 EDT, Tablet, [facility]/pharmacy #1, 153, cm, 01/23/20 14:30:00 EDT, Height, 47.9, [...]
--- OUTSIDE RECORDS SUMMARY | 2022-07-26 16:54 | XMS_ITS | Continuity of Care Document ---
Author Name Unknown Organization [facility] Address [address] [address]- Care Team Providers Care Nurse Consultant Name Role Phone Not on Staff, PCP Primary Care Physician Unavail able [facility] Date(s): 03/25/20 - 05/11/20 [facility] [address] [address] Attending Physician: Not on Staff, Attending MD Referring Physician: Taya Owen CNM Allergies, [...]
--- OUTSIDE RECORDS SUMMARY | 2022-07-26 16:54 | XMS_ITS | Continuity of Care Document ---
Author Name Unknown Organization [facility] Address [address] [address]- Care Team Providers Care Radiation Therapist Name Role Phone Not on Staff, PCP Primary Care Physician Unavail able [facility] Date(s): 06/24/20 - 07/27/20 [facility] [address] [place] [address] Attending Physician: Not on Staff, Attending MD Referring Physician: Charlotte Cartwright CNM Allergies, Adverse Reactions, Alerts Substance Reaction Severity Status Adhesive Bandage Active Immunizations Given and Recorded Vaccine Date Status Refusal Reason tetanus/diphtheria/pertussis, acel(Tdap) 03/25/20 Given Medications Depo-Provera Contraceptive 150 mg/mL intramuscular suspension 1 mL = 150 mg, Intramuscular, Every 3 months, # 1 mL, 3 Refills, Maintenance, 06/07/21 16:57:00 EST, Suspension, [facility], Partial fill upon patient request if the prescription is for a schedule II opioid drug., 152, cm, 04/28/20 9:... Start Date: 06/07/21 Stop Date: 06/02/22 Status: Ordered Depo-Provera Contraceptive 150 mg/mL intramuscular suspension 1 mL = 150 mg, Intramuscular, Every 3 months, for 90 days, # 1 mL, 3 Refills, Hard Stop 06/07/21 16:57:00 EST, 06/12/20 16:57:00 EST, Suspension, [facility]/pharmacy #[id number], Partial fill upon patient requestif the prescription is for a schedule II opioid ty... Start Date: 06/12/20 Stop Date: 06/07/21 Status: Ordered ferrous sulfate 325 mg oral tablet 1 tablet = 325 mg, By Mouth, 2 times a day, # 90 tablet, 1 Refills, Maintenance, 03/27/20 10:47:00 EST, Tablet, [facility]/pharmacy #[id number], 153, cm, 03/25/20 13:07:00 [...] 0 Refills, Maintenance, 03/06/20 10:14:00 EST, Tablet, [facility]/pharmacy #[id number], Partial fill upon patient [...]
--- OUTSIDE RECORDS SUMMARY | 2022-07-26 16:54 | XMS_ITS | Continuity of Care Document ---
Author Name Unknown Organization [facility] Address [address] [place] [address]- Care Team Providers Care Engineer Geophysical Laboratory Name Role Phone Not on Staff, PCP Primary Care Physician Unavail able [place] [facility]/25/[place] - 11/28/[address] [address]- [facility] Attending Physician: Not on Staff, Attending MD Allergies, Adverse Reactions, Alerts Substance Reaction Severity Status Adhesive Bandage Active Medications Ensure Plus Ensure Plus, See Instructions, # 90 each, Refills 4, Tot. Refills 4, Maintenance, Three times per day, 11/28/19 16:31:00 EDT, Compound Start Date: 11/28/19 Status: Ordered Flintstones Complete Multiple Vitamins with [...]
--- OUTSIDE RECORDS SUMMARY | 2022-07-26 16:54 | XMS_ITS | Continuity of Care Document ---
Author Name Unknown Organization [facility] Address Unknown Care Team Providers Care Qi Specialist Name Role Phone Not on Staff, PCP Primary Care Physician Unavail able En[facility] [place] Date(s): 03/24/21 - 05/02/21 [facility] Attending Physician: Not on Staff, Attending [...] Refills, Maintenance, 06/07/21 16:57:00 EST, Suspension, [facility], Partial fill upon patient request if the prescription is for a schedule II opioid drug., 152, cm, 04/28/20 9:... Start Date: 06/07/21 Stop Date: 06/02/22 Status: Ordered Depo-Provera Contraceptive 150 mg/mL intramuscular suspension 1 mL = 150 mg, Intramuscular, Every 3 months, for 90 days, # 1 mL, 3 Refills, Hard Stop 06/07/21 16:57:00 EST, 06/12/20 16:57:00 EST, Suspension, [facility]/pharmacy #[id number], Partial fill upon patient requestif the prescription is for a schedule II opioid ty... Start Date: 06/12/20 Stop Date: 06/07/21 Status: Ordered ferrous sulfate 325 mg oral tablet 1 tablet = 325 mg, By Mouth, 2 times a day, # 90 tablet, 1 Refills, Maintenance, 03/27/20 10:47:00 EST, Tablet, [id number], 153, cm, 03/25/20 13:07:00 EST, Height, 53.2, [...] 1 each, 5 Refills, Maintenance, 03/06/20 10:29:00EST, [facility]/pharmacy #[id number], Partial fill upon patient request, Use [...]
--- OUTSIDE RECORDS SUMMARY | 2022-07-26 16:54 | XMS_ITS | Continuity of Care Document ---
Author Name Unknown Organization [facility] Midwifery a [facility] Address [address] [address]- Care Team Providers Care Fisheries Director Name Role Phone Not on Staff, PCP Primary Care Physician Unavail able [facility] Date[facility]): [facility]20 - 07/20/20 [facility] [address] [place] [address] Attending Physician: Not on Staff, Attending MD Referring Physician: Magdalena Koch CNM Allergies, Adverse Reactions, Alerts Substance Reaction Severity Status Adhesive Bandage Active Immunizations Given and Recorded Vaccine Date Status Refusal Reason tetanus/diphtheria/pertussis, acel(Tdap) 03/25/20 Given Medications Depo-Provera Contraceptive 150 mg/mL intramuscular suspension 1 mL = 150 mg, Intramuscular, Every 3 months, # 1 mL, 3 Refills, Maintenance, 06/07/21 16:57:00 EST, Suspension, [facility], Partial fill upon patient request if the prescription is for a schedule II opioid drug., 152, cm, 04/28/20 9:... Start Date: 06/07/21 Stop Date: 06/02/22 Status: Ordered Depo-Provera Contraceptive 150 mg/mL intramuscular suspension 1 mL = 150 mg, Intramuscular, Every 3 months, for 90 days, # 1 mL, 3 Refills, Hard Stop 06/07/21 16:57:00 EST, 06/12/20 16:57:00 EST, Suspension, [facility]/pharmacy #[id number], Partial fill upon patient requestif the prescription is for a schedule II opioid ty... Start Date: 06/12/20 Stop Date: 06/07/21 Status: Ordered ferrous sulfate 325 mg oral tablet 1 tablet = 325 mg, By Mouth, 2 times a day, # 90 tablet, 1 Refills, Maintenance, 03/27/20 10:47:00 EST, Tablet, [facility]/pharmacy #[id number], 153, cm, 03/25/20 13:07:00 EST, [...] 0 Refills, Maintenance, 03/06/20 10:14:00 EST, Tablet, [facility]/pharmacy #[id number], Partial fill upon patient request [...]
--- OUTSIDE RECORDS SUMMARY | 2022-07-26 16:54 | XMS_ITS | Continuity of Care Document ---
Author Name Unknown Organization [facility] Address [address] [place] [address]- Care Team Providers Care Manager Rn Case Name Role Phone Not on Staff, PCP Primary Care Physician Unavail able [place] [facility] [place] [place]s): 11/09/19 - 11/16/19 [facility] [address] [place] [address]- [facility] Attending Physician: Elena Valle CNM Allergies, Adverse Reactions, [...]
--- OUTSIDE RECORDS SUMMARY | 2022-07-26 16:54 | XMS_ITS | Continuity of Care Document ---
Author Name Unknown Organization [facility] Address [address] [place] [address]- Care Team Providers Care Strategic Sourcing Manager Name Role Phone Not on Staff, PCP Primary Care Physician Unavail able [facility] Date(s): 10/24/19 - 11/23/[address] [address]- [facility] Allergies, Adverse Reactions, Alerts Substance Reaction Severity [...]
--- OUTSIDE RECORDS SUMMARY | 2022-07-26 16:54 | XMS_ITS | Continuity of Care Document ---
Author Name Unknown Organization [facility] [place] [facility] Address [address] [address]- Care Team Providers Care Shaper Hand Name Role Phone Not on Staff, PCP Primary Care Physician Unavail able [facility] Date(s): 12/12/19 - 01/11/20 [facility] [address] [address]- [facility] Allergies, Adverse Reactions, Alerts Substance Reaction [...]
--- OUTSIDE RECORDS SUMMARY | 2022-07-26 16:54 | XMS_ITS | Continuity of Care Document ---
Author Name Unknown Organization [facility] Address [address] [place] [address]- Care Team Providers Care Clinical Trial Assistant Name Role Phone Not on Staff, PCP Primary Care Physician Unavail able [facility] Date[facility]s): 10/29/19 - 11/28/19 [facility] and [facility] [address] [address]- [facility] Attending Physician: Luis Herrera Admitting Physician: Luis [...]
--- OUTSIDE RECORDS SUMMARY | 2022-07-26 16:54 | XMS_ITS | Continuity of Care Document ---
Author Name Unknown Organization [facility] a [facility] Address [address] [address]- Care Team Providers Care Ophthalmic Photographer Name Role Phone Not on Staff, PCP Primary Care Physician Unavail able [facility] Date(s): 11/09/19 - 12/09/19 [facility] and [facility] [address] [place] [address]- [facility] Allergies, Adverse Reactions, Alerts Substance [...]
--- OUTSIDE RECORDS SUMMARY | 2022-07-26 16:54 | XMS_ITS | Continuity of Care Document ---
Author Name Unknown Organization [facility] ter Address [address] [place] [address]- Care Team Providers Care Manager Wholesale Name Role Phone Not on Staff, PCP Primary Care Physician Unavail able Encounter [facility] Date(s): 01/15/20 - 01/15/[address] [address]- [facility] Discharge Disposition: A-D/C Home Attending Physician: Nohemi Beach MD Admitting Physician: Nohemi Beach MD Referring Physician: Nohemi Beach MD Allergies, Adverse Reactions, Alerts Substance Reaction Severity Status Adhesive Bandage Active Problem List Condition Effective Dates Status Health Status Inform ant Anemia(Confirmed) 1 Active History of gestational diabetes(Confirmed) 2019 Active Anxiety and depression(Confirmed) Active 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 1iron infusions with in past Results Orders for Microbiology Reports Name Date Urine Culture (URINE CULTURE) 01/15/20 Microbiology Reports TEST:Urine Culture STATUS:Unauthenticated BODY SITE: SOURCE:URINE COLLECTED DATE/TIME:01/15/20 5:37 PM Urine Culture SPECIMEN DESCRIPTION : URINE CLEAN CATCH/MIDSTREAM SPECIAL REQUESTS : NONE Reflexed from [id number] REPORT STATUS : PRELIMINARY REPORT Vital Signs Most recent to oldest [Reference Range]: 1 Height 153 cm (01/15/20 4:25 PM) Weight 47.9 kg (01/15/20 4:17 PM) Pulse Rate [55-90 bpm] 79 bpm (01/15/20 4:25 PM) Blood Pressure [90-138/55-84 mm Hg] 110/ 49mm Hg (01/15/20 4:25 PM) Respiratory Rate [16-30 br/min] 18 br/mi n (01/15/20 4:25 PM) Temperature [96.8-100.4 DegF] 98.6 DegF (01/15/20 4:17 PM) Blood pressure sites Arm, right (01/15/20 4:25 PM) Temperature Route Oral (01/15/20 4:17 PM) Dry Weight 47.9 kg (01/15/20 4:17 PM) Weight Obtained Via Standing scale (01/15/20 4:17 PM) Dry Weight Obtained Via Standing scale (01/15/20 4:17 PM) Social History Social History Type Response Smoking Status Never smoker; Tobacc o user in household: No entered on: 08/08/14 Sex
--- OUTSIDE RECORDS SUMMARY | 2022-07-26 16:54 | XMS_ITS | Continuity of Care Document ---
Author Name Unknown Organization [facility] Address [address] [address]- Care Team Providers Care Agile Qa Tester Name Role Phone Not on Staff, PCP Primary Care Physician Unavail able [facility]s): 06/27/20 - 10/12/20 [facility] [address] [place] [id number] Attending Physician: Not on Staff, Attending MD [...] 3 Refills, Maintenance, 06/07/21 16:57:00 EST, Suspension, [facility], Partial fill upon patient request if the prescription is for a schedule II opioid drug., 152, cm, 04/28/20 9:... Start Date: 06/07/21 Stop Date: 06/02/22 Status: Ordered Depo-Provera Contraceptive 150 mg/mL intramuscular suspension 1 mL = 150 mg, Intramuscular, Every 3 months, for 90 days, # 1 mL, 3 Refills, Hard Stop 06/07/21 16:57:00 EST, 06/12/20 16:57:00 EST, Suspension, [facility]/pharmacy #[id number], Partial fill upon patient requestif the prescription is for a schedule II opioid ty... Start Date: 06/12/20 Stop Date: 06/07/21 Status: Ordered ferrous sulfate 325 mg oral tablet 1 tablet = 325 mg, By Mouth, 2 times a day, # 90 tablet, 1 Refills, Maintenance, 03/27/20 10:47:00 EST, Tablet, [facility]/pharmacy #[id number], 153, cm, 03/25/20 13:07:00 EST, Height, [...] 0 Refills, Maintenance, 03/06/20 10:14:00 EST, Tablet, [facility]/pharmacy #[id number], Partial fill upon patient request if [...]
--- OUTSIDE RECORDS SUMMARY | 2022-07-26 16:55 | XMS_ITS | Continuity of Care Document ---
Author Name Unknown Organization [facility] Address Unknown Care Team Providers Care Dry Transfer Man Name Role Phone Not on Staff, PCP Primary Care Physician Unavail able [place] [facility] 09/24/20 - 01/10/21 [facility] Attending Physician: Not on Staff, [...] 3 Refills, Maintenance, 06/07/21 16:57:00 EST, Suspension, [facility], Partial fill upon [...]
--- OUTSIDE RECORDS SUMMARY | 2022-07-26 16:55 | XMS_ITS | Continuity of Care Document ---
Author Name Unknown Organization [facility] Address Unknown Care Team Providers Care Counter Former Name Role Phone Not on Staff, PCP Primary Care Physician Unavail able En[facility] Date(s): 10/02/21 - 11/01/21 [facility] Allergies, Adverse Reactions, Alerts Substance Reaction Severity Status Adhesive Bandage Active Immunizations Given and Recorded Vaccine Date Status Refusal Reason tetanus/diphtheria/pertussis, acel(Tdap) 03/25/20 Given Medications Depo-Provera Contraceptive 150 mg/mL intramuscular suspension 1 mL = 150 mg, Intramuscular, Every 3 months, # 1 mL, 4 Refills, Maintenance, 10/04/21 14:42:00 EDT, Suspension, [facility], Partial fill upon patient request if the prescription is for a schedule II opioid drug., 152, cm, 04/28/20 9:... Start Date: 10/04/21 Status: Ordered Depo-Provera Contraceptive 150 mg/mL intramuscular suspension 1 mL = 150 mg, Intramuscular, Every 3 months, # 1 mL, 3 Refills, Maintenance, 06/07/21 16:57:00 EST, Suspension, [facility], Partial fill upon patient request if the prescription is for a schedule II opioid drug., 152, cm, 04/28/20 9:... Start Date: 06/07/21 Stop Date: 06/02/22 Status: Ordered ferrous sulfate 325 mg oral tablet 1 tablet = 325 mg, By Mouth, 2 times a day, # 90 tablet, 1 Refills, Maintenance, 03/27/20 10:47:00 EST, Tablet, [facility]/pharm[facility] #[id number], 153, cm, 03/25/20 13:07:00 EST, [...] 0 Refills, Maintenance, 03/06/20 10:14:00 EST, Tablet, [facility]/pharmacy #[id number], Partial fill upon patient request [...] each, 5 Refills, Maintenance, 03/06/20 10:29:00EST, [id number], Partial fill upon patient request, Use QID [...]
--- OUTSIDE RECORDS SUMMARY | 2022-07-26 16:55 | XMS_ITS | Continuity of Care Document ---
Author Name Unknown Organization [facility] Address Unknown Care Team Providers Care Tour Bus Driver/Guide Name Role Phone Not on Staff, PCP Primary Care Physician Unavail able [place] [facility] [place] 04/14/21 - 05/14/21 [facility] Allergies, Adverse Reactions, Alerts Substance Reaction Severity Status Adhesive Bandage Active Immunizations Given and Recorded Vaccine Date Status Refusal Reason tetanus/diphtheria/pertussis, acel(Tdap) 03/25/20 Given Medications Depo-Provera Contraceptive 150 mg/mL intramuscular suspension 1 mL = 150 mg, Intramuscular, Every 3 months, # 1 mL, 3 Refills, Maintenance, 06/07/21 16:57:00 EST, Suspension, [facility], Partial fill upon patient request if the prescription is for a schedule II opioid drug., 152, cm, 04/28/20 9:... Start Date: 06/07/21 Stop Date: 06/02/22 Status: Ordered Depo-Provera Contraceptive 150 mg/mL intramuscular suspension 1 mL = 150 mg, Intramuscular, Every 3 months, for 90 days, # 1 mL, 3 Refills, Hard Stop 06/07/21 16:57:00 EST, 06/12/20 16:57:00 EST, Suspension, [facility]/pharmacy #[id number], Partial fill upon patient requestif the [...]
--- OUTSIDE RECORDS SUMMARY | 2022-07-26 16:55 | XMS_ITS | Continuity of Care Document ---
Author Name Unknown Organization [facility] ter Address [address] [place] [address]- Care Team Providers Care Naval Aircrewman Tactical Helicopter Name Role Phone Not on Staff, PCP Primary Care Physician Unavail able [place] [facility]/24/20 - 03/24/[address] [address]- Discharge Disposition: A-D/C Home Attending Physician: Allan Marcial MD Admitting Physician: Allan Marcial MD Referring Physician: Allan Marcial MD Allergies, Adverse Reactions, Alerts Substance Reaction Severity Status Adhesive Bandage Active Medications ferrous sulfate 325 mg oral tablet 1 tablet = 325 mg, By Mouth, Daily, # 90 tablet, 1 Refills, Maintenance, 01/23/20 16:44:00 EDT, Tablet, [id number], 153, cm, 01/23/20 14:30:00 EDT, Height, 47.9, kg, 01/15/20 16:17:00 EDT, Dry Weight Start Date: 01/23/20 Status: Ordered Freestyle Lite Lancets See Instructions, [...] 0 Refills, Maintenance, 03/06/20 10:14:00 EST, Tablet, [facility]/pharmacy #[id number], Partial fill upon patient request if the prescription is for a schedule II opioid drug., 153, cm, 03/06/20 9:52:00 EST,... 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 1iron infusions with in past 2Problem added by Discern Expert 3Spontaneous at 36w per patient hx Vital Signs Most recent to oldest [Reference Range]: 1 Height 153 cm (03/24/20 2:34 PM) Weight 53.2 kg (03/24/20 2:22 PM) Oxygen Saturation [94-100 %] 100 % (03/24/20 2:34 PM) Blood Pressure [90-138/55-84 mm Hg] 112/ 58mm Hg (03/24/20 2:34 PM) Respiratory Rate [16-30 br/min] 18 br/mi n (03/24/20 2:34 PM) Temperature [96.8-100.4 DegF] 98.1 DegF (03/24/20 2:34 PM) Temperature Route Oral (03/24/20 2:34 PM) Dry Weight 53.2 kg (03/24/20 2:22 PM) Weight Obtained Via Standing scale (03/24/20 2:22 PM) Dry Weight Obtained Via Standing scale (03/24/20 2:22 PM) Social History Social History Type Response Smoking Status Never smoker; Tobacc o user in household: No entered on: 08/08/14 Sex
--- OUTSIDE RECORDS SUMMARY | 2022-07-26 16:55 | XMS_ITS | Continuity of Care Document ---
Author Name Unknown Organization [facility] ter Address [address] [place] [address]- Care Team Providers Care Buying Agent Name Role Phone Julianne Julian DO Primary Care Physician [place] [facility] Date(s): 09/25/19 - 09/25/[address] [address]- [facility] Discharge Disposition: A-D/C AMA Attending Physician: Paty Whitaker MD Admitting Physician: Paty Whitaker MD Referring Physician: Paty Whitaker MD Allergies, Adverse Reactions, Alerts Substance Reaction Severity Status Adhesive Bandage Active Medications amitriptyline 75 mg oral tablet 1 tablet = 75 mg, By Mouth, Daily at bedtime, # 30 tablet, 5 Refills, Maintenance, 01/17/15 11:05:11, Tablet, 1 tablet By Mouth Daily at bedtime Start Date: 01/17/15 Status: Ordered azithromycin 500 mg oral tablet 2 tablet = 1,000 mg, By Mouth, Once, # 2 tablet, 0 Refills, Soft Stop, 09/28/16 10:58:26 Start Date: 09/28/16 Status: Ordered ibuprofen 400 mg oral tablet 1 tablet = 400 mg, By Mouth, Every 6 hours, PRN for pain, # 12 tablet, 0 Refills, Maintenance, 11/12/13 11:29:32, Tablet Start Date: 11/12/13 Stop Date: 11/15/13 Status: Ordered Multivitamins with Folic Acid 1 mg oral tablet 1 tablet, By Mouth, Daily, # 90 tablet, 3 Refills, Maintenance, 09/24/19 17:42:00 EDT, Tablet, [id number], 1 tablet By Mouth Daily, 153, cm, 09/24/19 14:45:00 EDT, Height Start Date: 09/24/19 Status: Ordered Zofran 4 mg oral tablet 1 tablet = 4 mg, By Mouth, Every 8 hours, PRN Nausea & Vomiting, # 15 tablet, 0 Refills, Maintenance, 06/23/17 2:26:54, Tablet Start Date: 06/23/17 Stop Date: 06/28/17 Status: Ordered Zofran 4 mg oral tablet 1 tablet = 4 mg, By Mouth, Every 8 hours, PRN Nausea & Vomiting, # 20 tablet, 0 Refills, Maintenance, 09/24/19 17:47:00 EDT, Tablet, [id number], 153, cm, 09/24/19 14:45:00 EDT, Height Start Date: 09/24/19 Status: Ordered Problem List Condition Effective Dates Status Health Status Inform ant Anemia(Confirmed) 1 Active Anxiety and depression(Confirmed) Active 1iron infusions with in past Social History Social History Type Response Smoking Status Never smoker; Tobacc o user in household: No entered on: 08/08/14 Sex
--- OUTSIDE RECORDS SUMMARY | 2022-07-26 16:55 | XMS_ITS | Continuity of Care Document ---
Author Name Unknown Organization [facility] a in [facility] Address [address] [address]- Care Team Providers Care Petroleum Engineer Name Role Phone Not on Staff, PCP Primary Care Physician Unavail able [facility] Date[facility]s): 12[facility]19 - 01/05/20 [facility] [address] [address]- [facility] Attending Physician: Not on Staff, Attending MD Referring Physician: Mendy ARMSTRONG GASTROENTEROLOGY NURSE PRACTITIONER, Bull Peterson Allergies, Adverse Reactions, Alerts Substance [...]
--- OUTSIDE RECORDS SUMMARY | 2022-07-26 16:55 | XMS_ITS | Continuity of Care Document ---
Author Name Unknown Organization [facility] Address Unknown Care Team Providers Care Tongue Presser Name Role Phone Not on Staff, PCP Primary Care Physician Unavail able Encounter [facility] Date(s): 06/01/21 - 07/01/21 [facility] Allergies, Adverse Reactions, Alerts Substance Reaction Severity Status Adhesive Bandage Active Immunizations Given and Recorded Vaccine Date Status Refusal Reason tetanus/diphtheria/pertussis, acel(Tdap) 03/25/20 Given Medications Depo-Provera Contraceptive 150 mg/mL intramuscular suspension 1 mL = 150 mg, Intramuscular, Every 3 months, # 1 mL, 3 Refills, Maintenance, 06/07/21 16:57:00 EST, Suspension, [facility], Partial fill upon patient request if the prescription is for a schedule II opioid drug., 152, cm, 04/28/20 9:... Start Date: 06/07/21 Stop Date: 06/02/22 Status: Ordered ferrous sulfate 325 mg oral tablet 1 tablet = 325 mg, By Mouth, 2 times a day, # 90 tablet, 1 Refills, Maintenance, 03/27/20 10:47:00 EST, Tablet, [facility]/pharmacy #[id number], 153, cm, 03/25/20 13:07:00 EST, Height, [...]
--- OUTSIDE RECORDS SUMMARY | 2022-07-26 16:55 | XMS_ITS | Continuity of Care Document ---
Author Name Unknown Organization [facility] Address [address] [place] [address]- Care Team Providers Care Manager Hi Name Role Phone Not on Staff, PCP Primary Care Physician Unavail able [facility] Date(s): 01/21/22 - 02/20/22 [facility] and [address] [address]- Allergies, Adverse Reactions, Alerts Substance Reaction Severity Status Adhesive Bandage Active Immunizations Given and Recorded Vaccine Date Status Refusal Reason tetanus/diphtheria/pertussis, acel(Tdap) 03/25/20 Given Medications Depo-Provera Contraceptive 150 mg/mL intramuscular suspension 1 mL = 150 mg, Intramuscular, Every 3 months, # 1 mL, 4 Refills, Maintenance, 10/04/21 14:42:00 EDT, Suspension, [facility], Partial fill upon patient request if the prescription is for a schedule II opioid drug., 152, cm, 04/28/20 9:... Start Date: 10/04/21 Status: Ordered Depo-Provera Contraceptive 150 mg/mL intramuscular suspension 1 mL = 150 mg, Intramuscular, Every 3 months, # 1 mL, 3 Refills, Maintenance, 06/07/21 16:57:00 EST, Suspension, [facility], Partial fill upon patient request if the prescription is for a schedule II opioid drug., 152, cm, 04/28/20 9:... Start Date: 06/07/21 Stop Date: 06/02/22 Status: Ordered ferrous sulfate 325 mg oral tablet 1 tablet = 325 mg, By Mouth, 2 times a day, # 90 tablet, 1 Refills, Maintenance, 03/27/20 10:47:00 EST, Tablet, [facility]/pharmacy #[id number], 153, cm, 03/25/20 13:07:00 [...] 0 Refills, Maintenance, 03/06/20 10:14:00 EST, Tablet, [facility]/pharmacy #[id number], Partial fill upon patient request if the [...] Personnel Name: Not on Staff, PCP Position: [facility] Physician (General Medicine) Member Role: PCP Name: Sara Alicea RN Position: [facility] OB RN Member Role: Primary Care Nurse Care Team Related Persons Name: PAO ALBERTO Address: [address] Address: home [address] [place] [address] Name: PIERO CLOUD Name: SHAD CLOUD Address: [address] [place] [address] Name: BABATUNDE RAMIREZ Address: home [address] [address]
--- OUTSIDE RECORDS SUMMARY | 2022-07-26 16:55 | XMS_ITS | Continuity of Care Document ---
Author Name Unknown Organization [facility] ter Address [address] [place] [address]- Care Team Providers Care Whipped Topping Finisher Name Role Phone Not on Staff, PCP Primary Care Physician Unavail able [place] [facility] [place](s): 12/17/19 - 12/17/[address] [address]- [facility] Discharge Disposition: A-D/C Walkout Attending Physician: Alejandra Benitez MD Admitting Physician: Emmanuel ROCHE, Alejandra Referring Physician: Alejandra Benitez MD Allergies, Adverse Reactions, Alerts Substance Reaction [...] Date: 11/14/19 Stop Date: 05/12/20 Status: Ordered metroNIDAZOLE 0.75% topical gel 1 application, Vaginally, Daily at bedtime, # 45 Gm, 0 Refills, Maintenance, 12/17/19 10:19:00 EDT,[id number], 1 application Vaginally Daily at bedtime,x5 days, 153, cm, 11/14/19 13:48:00 EDT, Height, 44.4, kg, 11/14/19 13:48:00 EDT, Dry Weight Start Date: 12/17/19 Stop Date: 12/22/19 Status: Ordered promethazine 25 mg rectal suppository [...]
--- OUTSIDE RECORDS SUMMARY | 2022-07-26 16:55 | XMS_ITS | Continuity of Care Document ---
Author Name Unknown Organization [facility] Address [address] [address]- Care Team Providers Care Car Distributor Name Role Phone Not on Staff, PCP Primary Care Physician Unavail able [facility]): [facility]20 - 10/22/20 [facility] [address] [place] [address]- Attending Physician: Not on Staff, Attending MD Referring Physician: Charlotte Koehler CNM Allergies, Adverse Reactions, Alerts Substance Reaction Severity Status Adhesive Bandage Active Immunizations Given and Recorded Vaccine Date Status Refusal Reason tetanus/diphtheria/pertussis, acel(Tdap) 03/25/20 Given Medications Depo-Provera Contraceptive 150 mg/mL intramuscular suspension 1 mL = 150 mg, Intramuscular, Every 3 months, # 1 mL, 3 Refills, Maintenance, 06/07/21 16:57:00 EST, Suspension, [facility], Partial fill upon patient request if the prescription is for a schedule II opioid drug., 152, cm, 04/28/20 9:... Start Date: 06/07/21 Stop Date: 06/02/22 Status: Ordered Depo-Provera Contraceptive 150 mg/mL intramuscular suspension 1 mL = 150 mg, Intramuscular, Every 3 months, for 90 days, # 1 mL, 3 Refills, Hard Stop 06/07/21 16:57:00 EST, 06/12/20 16:57:00 EST, Suspension, [facility]/pharmacy #[id number], Partial fill upon patient requestif the prescription is for a schedule II opioid ty... Start Date: 06/12/20 Stop Date: 06/07/21 Status: Ordered ferrous sulfate 325 mg oral tablet 1 tablet = 325 mg, By Mouth, 2 times a day, # 90 tablet, 1 Refills, Maintenance, 03/27/20 10:47:00 EST, Tablet, [facility]/pharmacy #[id number], 153, cm, 03/25/20 13:07:00 [...] Maintenance, 03/06/20 10:14:00 EST, Tablet, [facility]/pharmacy #[id number], Partial fill upon patient request if [...]
--- OUTSIDE RECORDS SUMMARY | 2022-07-26 16:55 | XMS_ITS | Continuity of Care Document ---
Author Name Unknown Organization [facility] Address [address] [address]- Care Team Providers Care Pad Cutter Name Role Phone Not on Staff, PCP Primary Care Physician Unavail able [facility]): 12/11/19 - 01/10/20 [facility] [address] [address]- [facility] Allergies, Adverse Reactions, Alerts [...]
--- OUTSIDE RECORDS SUMMARY | 2022-07-26 16:55 | XMS_ITS | Continuity of Care Document ---
Author Name Unknown Organization [facility] Address [address] [address]- Care Team Providers Care Guide Name Role Phone Not on Staff, PCP Primary Care Physician Unavail able [facility] Date[facility]s): 09/23/20 - 10/23/20 [facility] [address] [place] [id number] Allergies, Adverse Reactions, Alerts Substance Reaction Severity Status Adhesive Bandage Active Immunizations Given and Recorded Vaccine Date Status Refusal Reason tetanus/diphtheria/pertussis, acel(Tdap) 03/25/20 Given Medications Depo-Provera Contraceptive 150 mg/mL intramuscular suspension 1 mL = 150 mg, Intramuscular, Every 3 months, # 1 mL, 3 Refills, Maintenance, 06/07/21 16:57:00 EST, Suspension, [facility], Partial fill upon patient request if the prescription is for a schedule II opioid drug., 152, cm, 04/28/20 9:... Start Date: 06/07/21 Stop Date: 06/02/22 Status: Ordered Depo-Provera Contraceptive 150 mg/mL intramuscular suspension 1 mL = 150 mg, Intramuscular, Every 3 months, for 90 days, # 1 mL, 3 Refills, Hard Stop 06/07/21 16:57:00 EST, 06/12/20 16:57:00 EST, Suspension, [facility]/pharmacy #[id number], Partial fill upon patient requestif [...] 0 Refills, Maintenance, 03/06/20 10:14:00 EST, Tablet, [facility]/pharmacy #[id number], Partial fill upon patient request [...]
--- OUTSIDE RECORDS SUMMARY | 2022-07-26 16:55 | XMS_ITS | Continuity of Care Document ---
Author Name Unknown Organization [facility] Address [address] [address]- Care Team Providers Care Clinical Practice Consultant Name Role Phone Not on Staff, PCP Primary Care Physician Unavail able [facility]s): 12/06/19 - 01/05/20 [facility] [address] [address]- [facility] Allergies, Adverse Reactions, Alerts Substance Reaction [...]
--- OUTSIDE RECORDS SUMMARY | 2022-07-26 16:55 | XMS_ITS | Continuity of Care Document ---
Author Name Unknown Organization [facility] Address [address] [address]- Care Team Providers Care Sap Integration Architect Name Role Phone Not on Staff, PCP Primary Care Physician Unavail able [facility]s): 12/05/19 - 01/04/20 [facility] [address] [address]- [facility] Allergies, Adverse Reactions, Alerts Substance [...]
--- OUTSIDE RECORDS SUMMARY | 2022-07-26 16:55 | XMS_ITS | Continuity of Care Document ---
Author Name Unknown Organization [facility] Address Unknown Care Team Providers Care Superintendent Plant Name Role Phone Not on Staff, PCP Primary Care Physician Unavail able Encounter [facility] Date(s): 10/23/21 - 11/22/21 [facility] Attending Physician: Luis Herrera Admitting Physician: Luis Herrera Referring Physician: Luis Herrera Allergies, Adverse Reactions, Alerts Substance Reaction Severity Status Adhesive Bandage Active Immunizations Given and Recorded Vaccine Date Status Refusal Reason tetanus/diphtheria/pertussis, acel(Tdap) 03/25/20 Given Medications Depo-Provera Contraceptive 150 mg/mL intramuscular suspension 1 mL = 150 mg, Intramuscular, Every 3 months, # 1 mL, 4 Refills, Maintenance, 10/04/21 14:42:00 EDT, Suspension, [facility], Partial fill upon patient request if the prescription is for a schedule II opioid drug., 152, cm, 04/28/20 9:... Start Date: 10/04/21 Status: Ordered Depo-Provera Contraceptive 150 mg/mL intramuscular suspension 1 mL = 150 mg, Intramuscular, Every 3 months, # 1 mL, 3 Refills, Maintenance, 06/07/21 16:57:00 EST, Suspension, [facility], Partial fill upon patient request if the prescription is for a schedule II opioid drug., 152, cm, 04/28/20 9:... Start Date: 06/07/21 Stop Date: 06/02/22 Status: Ordered ferrous sulfate 325 mg oral tablet 1 tablet = 325 mg, By Mouth, 2 times a day, # 90 tablet, 1 Refills, Maintenance, 03/27/20 10:47:00 EST, Tablet, [facility]/pharmacy #[id number], 153, cm, 03/25/20 13:07:00 EST, [...] Refills, Maintenance, 03/06/20 10:14:00 EST, Tablet, [id number], Partial fill upon patient request if the [...] 1 each, 5 Refills, Maintenance, 03/06/20 10:29:00EST, [facility]/pharmacy #[id number], Partial fill upon patient request, Use [...]
--- OUTSIDE RECORDS SUMMARY | 2022-07-26 16:55 | XMS_ITS | Continuity of Care Document ---
Author Name Unknown Organization [facility] Address [address] [address]- Care Team Providers Care Top Inventory Control Executive Name Role Phone Not on Staff, PCP Primary Care Physician Unavail able [facility]s): 03[facility]26/20 - 05/01/20 [facility] [address] [address] Attending Physician: Taya Owen CNM Admitting Physician: Taya Owen CNM Referring Physician: Taya Owen CNM Allergies, Adverse [...] 0 Refills, Maintenance, 03/06/20 10:14:00 EST, Tablet, [facility]/pharmacy #[id number], Partial fill upon patient request if [...]
--- OUTSIDE RECORDS SUMMARY | 2022-07-26 16:55 | XMS_ITS | Continuity of Care Document ---
Author Name Unknown Organization [facility] Ray Montesinos [employer] [facility] Address [address] [facility] [place] [address]- Care Team Providers Care Treasury Consultant Name Role Phone Not on Staff, PCP Primary Care Physician Unavail able [facility]s): 12/26/19 - 01/02/20 [facility] [place] [facility] [address] [facility] [place] [address]- [facility] Attending Physician: Elena Valle CNM Allergies, Adverse [...]
--- OUTSIDE RECORDS SUMMARY | 2022-07-26 16:55 | XMS_ITS | Continuity of Care Document ---
Author Name Unknown Organization [facility] Ray ramírez [facility] Address [address] [facility] [place] [address]- Care Team Providers Care Call Center Consultant Name Role Phone Not on Staff, PCP Primary Care Physician Unavail able [facility]counter [facility] Date(s): 04/11/20 - 05/11/20 [facility] [employer] [facility] [address] [facility]th [place] [address]- Attending Physician: Luis Herrera Admitting Physician: AdmtrLuis Referring Physician: Admtr, [id number] Allergies, Adverse Reactions, Alerts Substance Reaction Severity [...] 0 Refills, Maintenance, 03/06/20 10:14:00 EST, Tablet, [facility]/pharmacy #[id number], Partial fill upon patient request if [...]
--- OUTSIDE RECORDS SUMMARY | 2022-07-26 16:55 | XMS_ITS | Continuity of Care Document ---
Author Name Unknown Organization [facility] ter Address [address] [place] [address]- Care Team Providers Care Statistical Assistant Name Role Phone Julianne Julian DO Primary Care Physician Encounter [facility] Date(s): 09/27/19 - 09/27/[address] [address]- [facility] Discharge Disposition: A-D/C Home Attending Physician: Paty Whitaker MD Admitting Physician: Paty Whitaker MD Referring Physician: Paty Whitaker MD Allergies, Adverse Reactions, Alerts Substance Reaction Severity Status Adhesive Bandage Active Medications doxylamine 25 mg oral tablet 1 tablet = 25 mg, By Mouth, Daily at bedtime, PRN for sleep, for 28 days, # 28 tablet, 1 Refills, Acute 11/22/19 22:32:00 EDT, 09/27/19 22:32:00 EDT, Tablet, [id number], 153, cm, 09/24/19 14:45:00 EDT, Height, 45, kg, 09/27/19 17:39:00 EDT, . Start Date: 09/27/19 Stop Date: 11/22/19 Status: Ordered pyridoxine 25 mg oral tablet 1 tablet = 25 mg, By Mouth, 3 times a day, for 30 days, # 90 tablet, 1 Refills, Acute 11/26/19 22:31:00 EDT, 09/27/19 22:31:00 EDT, Tablet, [id number], 153, cm, 09/24/19 14:45:00 EDT, Height,45, kg, 09/27/19 17:39:00 EDT, Dry Weight Start Date: 09/27/19 Stop Date: 11/26/19 Status: Ordered Reglan 10 mg oral tablet 1 tablet = 10 mg, By Mouth, 3 times a day before meals, for 30 days, # 28 tablet, 1 Refills, Acute 11/26/19 22:32:00 EDT, 09/27/19 22:32:00 EDT, Tablet, [facility]/pharmacy #[id number], 153, cm, 09/24/19 14:45:00EDT, Height, 45, kg, 09/27/19 17:39:00 EDT, Dry Weight Start Date: 09/27/19 Stop Date: 11/26/19 Status: Ordered Zofran 4 mg oral tablet 1 tablet = 4 mg, By Mouth, Every 8 hours, PRN as needed for nausea/vomiting, # 30 tablet, 1 Refills, Maintenance, 09/27/19 22:32:00 EDT, Tablet, [facility]/pharmacy #[id number], 153, cm, 09/24/19 14:45:00 EDT, Height, 45, kg, 09/27/19 17:39:00 EDT, Dry Weight Start Date: 09/27/19 Status: Ordered Problem List Condition Effective Dates Status Health Status Inform ant Anemia(Confirmed) 1 Active Anxiety and depression(Confirmed) Active 1iron infusions with in past Vital Signs Most recent to oldest [Reference Range]: 1 Weight 45.0 kg (09/27/19 5:39 PM) Oxygen Saturation [94-100 %] 100 % (09/27/19 5:51 PM) Blood Pressure [90-138/55-84 mm Hg] 103/ 63mm Hg (09/27/19 5:51 PM) Respiratory Rate [16-30 br/min] 18 br/mi n (09/27/19 5:51 PM) Temperature [96.8-100.4 DegF] 97.5 DegF (09/27/19 5:39 PM) Mode of Delivery (Oxygen) Room air (09/27/19 5:51 PM) Blood pressure sites Arm, right (09/27/19 5:51 PM) Temperature Route Oral (09/27/19 5:39 PM) Dry Weight 45.0 kg (09/27/19 5:39 PM) Weight Obtained Via Standing scale (09/27/19 5:39 PM) Dry Weight Obtained Via Standing scale (09/27/19 5:39 PM) Social History Social History Type Response Smoking Status Never smoker; Tobacc o user in household: No entered on: 08/08/14 Sex
--- NOTE | 2022-07-26 17:04 | ED.GENADULT ---
HPI - General Adult General Chief complaint: General Medical Stated complaint: coughing Time Seen by Provider: 07/26/22 16:45 Source: patient Mode of arrival: ambulatory Limitations: no limitations History of Present Illness HPI narrative: This is a 27-year-old female who presents to the ER with complaints of nonproductive cough with post-tussive vomiting, headache, body aches and chills for 1 month. Patient tells me that she was seen by her primary care and was negative for flu and COVID. She was prescribed a 5 day course of an antibiotic but she cannot recall the name of it. She also was given albuterol inhaler which she has been using. Patient reports she has had no improvement in her symptoms. She does work as a PHARMACY STOCK CLERK. She has been out of work due to her symptoms. Related Data Previous Rx's Medication Instructions Recorded benzonatate 100 mg capsule 100 mg PO TID PRN cough #14 caps 08/25/20 (Tessalon Perles) fluticasone propionate 50 2 spray intranasal DAILY #16 grams 08/25/20 mcg/actuation nasal spray,suspension (Flonase Allergy Relief) benzonatate 200 mg capsule 200 mg PO TID PRN cough #20 caps 07/26/22 doxycycline monohydrate 100 mg 100 mg PO BID #20 caps 07/26/22 capsule prednisone 20 mg tablet 40 mg PO DAILY #10 tabs 07/26/22 Allergies Allergy/AdvReac Type Severity Reaction Status Date / Time No Known Allergies Allergy Unverified 12/20/19 18:31 [No Known Allergies*] Review of Systems Review of Systems: Yes all other systems are reviewed and are negative Constitutional: Constitutional: Reports no additional constitutional complaints, Reports body ache(s), Reports chills, Denies fever(s), Reports headache(s) and Denies weakness Eyes: Eyes: Reports no additional eye complaints and Denies change in vision ENT: Reports system reviewed and no additional complaints, except as documented, Denies dizziness, Reports headache(s), Denies nasal congestion, Denies nasal discharge and Denies neck pain Cardiovascular: Cardiovascular: Reports no additional cardiovascular complaints, Denies chest pain, Denies leg edema and Denies dyspnea Respiratory: Respiratory: Reports no additional respiratory complaints, Reports cough and Denies dyspnea Gastrointestinal: Gastrointestinal: Reports no additional gastrointestinal complaints, Denies abdominal pain, Denies diarrhea, Denies nausea and Denies vomiting Comments: +post tussive vomiting Genitourinary: Genitourinary: Reports no additional female genitourinary complaints and Denies urinary incontinence Musculoskeletal: Musculoskeletal: Reports no additional musculoskeletal complaints, Denies back pain, Denies arthralgias, Denies joint swelling, Denies neck pain, Denies numbness and Denies tingling Integumentary/Breasts: Skin/Breast: Reports system reviewed and no additional complaints, except as docu and Denies rash Neurologic: Reports system reviewed and no additional complaints, except as documented, Denies dizziness, Reports headache(s), Denies numbness, Denies tingling and Denies weakness [facility] Past Medical History Attestation statement: The following information was validated with the patient. Source: old records reviewed and nursing notes reviewed Social History Social History Advance Directives: No Advance Directives Information Provided: No Physical Exam ED Vital Signs: Vital Signs - 24 hr 07/26/22 10:48 Temperature 98.4 F Pulse Rate 92 Respiratory Rate 18 Blood Pressure 116/70 Pulse Oximetry 98 Oxygen Delivery Method Room Air BMI result Body Mass Index 21.9 Const General: cooperative, healthy appearing and comfortable Orientation/consciousness: patient oriented x3 Limitations: no limitations HENMT Head: Yes normal to inspection Ears: hearing grossly normal bilaterally and TM's normal bilaterally General nose exam: Normal external nose present Face and sinus: Yes normal facial exam Mouth: Normal oral and palatal mucosa present Throat: Yes posterior oropharynx normal, Yes tonsils normal and Yes uvula midline Eyes General: appearance normal, both eyes and all related structures Pupils: Equal, round and reactive pupils present Neck Neck: Yes normal visual inspection, Yes full ROM, Yes no lymphadenopathy and Yes no meningeal signs Chest Chest palpation & inspection: normal inspection of the chest Resp Other: mild exp wheezing Effort & Inspection: normal respiratory effort Cardio Rate: regular rate Rhythm: regular rhythm Peripheral pulses: Peripheral pulses 2+ throughout General: Yes no CVA tenderness Back/Spine/Pelvis Back: no CVA tenderness Thoracic/Lumbar Spine: thoracic and lumbar spine normal to inspection Skin General skin exam: no rashes or lesions noted Neuro General: patient oriented x3, moves all extremities and no meningeal signs Cranial nerves: Yes Equal, round and reactive pupils present Cognition (Neuro): normal cognition Gait exam (Neuro): Normal gait present Extrem General: Yes normal to inspection, Yes no pedal edema and Yes no calf tenderness Course Course Course Narrative: COVID and flu testing are negative. Chest x-rays negative for infection. Labs are unremarkable. Pertussis test is pending (confirmed with lab this is on the respiratory panel). Patient discharged home with course of antibiotics, prednisone, cough suppressant. Reviewed worrisome signs and symptoms of when to return to the emergency room. Comfortable with discharge home. Medical Decision Making Medical Decision Making [facility] Narrative: 27-year-old female here with 1 month of cough, posttussive vomiting, headache, body aches, chills despite being treated with a 5 day course of antibiotics and using albuterol MDI p.r.n.. Vitals are stable Lungs with mild expiratory wheeze Will send testing for flu, COVID, obtain chest x-ray, d/t persistent symptoms will obtain labs/pertussis testing Differential Diagnosis Differential Diagnoses: The differential diagnosis associated with the presentation includes viral syndrome, pna, bronchitis PERC 0, less likely PE Due to chronic cough with post-tussive vomiting consider pertussis Lab Data [facility] Lab Attestation statement: I reviewed the patient's lab results. 07/26/22 17:51 07/26/22 17:51 Labs: Lab Results 07/26/22 07/26/22 07/26/22 Range/Units 11:33 17:51 17:51 WBC 5.1 (4.8-10.8) X10*3/uL RBC 5.01 (4.20-5.50) X10*6/uL Hgb 12.7 (12.0-16.0) g/dl Hct 39.5 (37.0-47.0) % MCV 78.8 L (80.0-98.0) fL MCH 25.3 L (27.0-33.0) pg MCHC 32.2 (31.0-35.0) g/dl RDW 12.0 (11.0-16.0) % Plt Count 183 (160-400) X10*3/uL MPV 12.3 (9.4-12.3) fL Immature Gran % (Auto) 0.2 (0.0-0.4) % Neut % (Auto) 59.6 (45-73) % Lymph % (Auto) 32.1 (20-40) % Garvin % (Auto) 6.7 (2-11) % Eos % (Auto) 0.8 (0-4) % Baso % (Auto) 0.6 (0-2) % Lymph # (Auto) 1.6 (1.2-4.9) X10*3/uL Garvin # (Auto) 0.3 (0.1-1.2) X10*3/uL Eos # (Auto) 0.0 (0.0-0.4) X10*3/uL Baso # (Auto) 0.0 (0.0-0.2) X10*3/uL Abs Immat Gran (auto) 0.01 (0.00-0.03) X10*3/uL Absolute Neuts (auto) 3.1 (2.0-8.3) x10*3/uL Absolute Nucleated RBC 0.000 (0.0-0.012) X10*3/uL Nucleated RBC % (auto) 0.0 (0.0-0.2) /100WBC Sodium 141 (135-145) mmol/L Potassium 3.8 (3.3-5.1) mmol/L Chloride 106 (96-108) mmol/L Carbon Dioxide 28 (22-29) mmol/L Anion Gap 11 L (12-20) BUN 11 (9-16) mg/dL Creatinine 0.82 (0.5-1.4) mg/dL Estim Creat Clear Calc 75.3 Estimated GFR > 60 Random Glucose 128 H (60-115) mg/dL Calcium 9.5 (8.4-10.2) mg/dL COVID-19 (DINESH) Negative (Negative) COVID-19 Clin Com See Note Independent Interpretation I performed an independent interpretation of an: Plain X-Ray Interpretation: I independently viewed x-ray and agree with radiologist's report Radiology Impression Discussion of test interpretation with radiology: I have reviewed the radiologist's reading. Radiologist Impression: [address] [address] XRay Report Signed Patient: Kimberly Renee MR#: [id number] : 1995 Acct:[id number] Age/Sex: 27 / F ADM Date: 07/26/22 Loc: .ED Attending Dr: Ordering Physician: Fermín ED Physician Date of Service: 07/26/22 Procedure(s): XR chest 2V Accession Number(s): [id number] cc: Generic ED Physician~ EXAMINATION: XR CHEST CLINICAL INFORMATION: Cough COMPARISON: Previous chest x-ray August 2020 TECHNIQUE: 2 views of the chest were obtained. FINDINGS: No significant abnormality is noted involving the heart, lungs, mediastinum, bony thorax or soft tissues. XR/XR chest 2V IMPRESSION: Unremarkable examination. Discharge Plan Discharge Clinical Impression: Bronchitis Patient Disposition: Home, Self-Care Instructions: Acute Bronchitis (ED) Additional Instructions: Testing for flu, covid are negative Chest x-ray shows no signs of pneumonia We did send testing for pertussis which will take several days to come back Prescriptions: New doxycycline monohydrate 100 mg capsule 100 mg PO BID Qty: 20 0RF prednisone 20 mg tablet 40 mg PO DAILY Qty: 10 0RF benzonatate 200 mg capsule 200 mg PO TID PRN (Reason: cough) Qty: 20 0RF No Action fluticasone propionate [Flonase Allergy Relief] 50 mcg/actuation spray,suspension 2 spray intranasal DAILY Qty: 16 0RF Rx Instructions: administer into each nostril benzonatate [Tessalon Perles] 100 mg capsule 100 mg PO TID PRN (Reason: cough) Qty: 14 0RF Referrals: [facility] [Primary Care Provider] - 1 week Stand Alone Forms: Work/School Release
[2022-07-26 17:56] LABS: MANUAL DIFF FLAG NO
[2022-07-26 18:00] LABS: Basophils Percent Auto 0.6 % (0-2); Eosinophils Percent Auto 0.8 % (0-4); Hematocrit 39.5 % (37.0-47.0); Hemoglobin 12.7 g/dl (12.0-16.0); Imm Gran Abs Auto 0.01 X10*3/uL (0.00-0.03); Imm Gran Pct Auto 0.2 % (0.0-0.4); Lymphocytes Absolute Auto 1.6 X10*3/uL (1.2-4.9); Lymphocytes Percent Auto 32.1 % (20-40); Mean Corpuscular HGB Conc 32.2 g/dl (31.0-35.0); Mean Corpuscular Hemoglobin 25.3 pg (27.0-33.0); Mean Corpuscular Volume 78.8 fL (80.0-98.0); Mean Platelet Volume 12.3 fL (9.4-12.3); Monocytes Absolute Auto 0.3 X10*3/uL (0.1-1.2); Monocytes Percent Auto 6.7 % (2-11); Neutrophils Absolute Auto 3.1 x10*3/uL (2.0-8.3); Neutrophils Percent Auto 59.6 % (45-73); Platelet Count 183 X10*3/uL (160-400); Red Blood Count 5.01 X10*6/uL (4.20-5.50); White Blood Count 5.1 X10*3/uL (4.8-10.8)
[2022-07-26 18:13] LABS: Anion Gap 11 (12-20); Blood Urea Nitrogen 11 mg/dL (9-16); Calcium 9.5 mg/dL (8.4-10.2); Carbon Dioxide 28 mmol/L (22-29); Chloride 106 mmol/L (96-108); Creatinine Clr Calc Pharmacy 75.3; Estimated Glomerular Filt Rate > 60; Glucose Random 128 mg/dL (60-115); Potassium 3.8 mmol/L (3.3-5.1); Sodium 141 mmol/L (135-145)
[2022-07-26 18:51] VITALS: BP 106/65; PULSE 102; RESP 17; TEMP 35.9; O2SAT 99
[2022-07-27 09:46] LABS: RSV PCR Not Detected (Not Detect.)
[2022-07-27 09:47] LABS: Adenovirus PCR Not Detected (Not Detect.); Bordetella parapertussis PCR Not Detected (Not Detect.); Bordetella pertussis PCR Not Detected (Not Detect.); Chlamydia pneumoniae PCR Not Detected (Not Detect.); Coronavirus 229E PCR Not Detected (Not Detect.); Coronavirus HKU1 PCR Not Detected (Not Detect.); Coronavirus NL63 PCR Not Detected (Not Detect.); Coronavirus OC43 PCR Not Detected (Not Detect.); Human metapneumovirus PCR Not Detected (Not Detect.); Influenza A PCR Not Detected (Not Detect.); Influenza B PCR Not Detected (Not Detect.); Mycoplasma pneumoniae PCR Not Detected (Not Detect.); Parainfluenza 1 PCR Not Detected (Not Detect.); Parainfluenza 2 PCR Not Detected (Not Detect.); Parainfluenza 3 PCR Not Detected (Not Detect.); Parainfluenza 4 PCR Not Detected (Not Detect.); Rhino/Enterovirus PCR Not Detected (Not Detect.); SARS-CoV-2 PCR Not Detected (Not Detect.)
== END 2022-07-26 18:53 | disposition home or self-care (01) ==
PROVIDERS: Nurse Practitioner Family; Emergency Provider Emergency Medicine Emergency Medical Services
DX: J40 Bronchitis, not specified as acute or chronic (principal); Z20.822 Contact with and (suspected) exposure to COVID-19; Z79.899 Other long term (current) drug therapy
CPT/HCPCS: 36415; 71046; 80048; 85025; 87633; 87635; 99283; 99284

== ENCOUNTER 2022-08-03 11:07 | Emergency (ER) | payer MEDICAID, SELFPAY ==
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
[2022-08-03 11:12] VITALS: BP 116/80; PULSE 110; O2SAT 99
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
[2022-08-03 11:33] VITALS: BP 100/61; PULSE 135; RESP 18; TEMP 36.7; O2SAT 98; BMI 21.9
[2022-08-03 13:58] LABS: MANUAL DIFF FLAG NO
[2022-08-03 14:02] LABS: Basophils Percent Auto 0.3 % (0-2); Hematocrit 44.6 % (37.0-47.0); Hemoglobin 14.7 g/dl (12.0-16.0); Imm Gran Abs Auto 0.03 X10*3/uL (0.00-0.03); Imm Gran Pct Auto 0.3 % (0.0-0.4); Lymphocytes Absolute Auto 0.7 X10*3/uL (1.2-4.9); Lymphocytes Percent Auto 6.8 % (20-40); Mean Corpuscular Hemoglobin 25.3 pg (27.0-33.0); Mean Corpuscular Volume 76.6 fL (80.0-98.0); Mean Platelet Volume 12.1 fL (9.4-12.3); Monocytes Absolute Auto 0.9 X10*3/uL (0.1-1.2); Monocytes Percent Auto 8.7 % (2-11); Neutrophils Absolute Auto 8.2 x10*3/uL (2.0-8.3); Neutrophils Percent Auto 83.9 % (45-73); Platelet Count 227 X10*3/uL (160-400); Red Blood Count 5.82 X10*6/uL (4.20-5.50); White Blood Count 9.7 X10*3/uL (4.8-10.8)
--- NOTE | 2022-08-03 14:18 | ECG_ITS ---
Test Reason : tachycardia Blood Pressure : / mmHG Vent. Rate : 124 BPM Atrial Rate : 124 BPM P-R Int : 128 ms QRS Dur : 078 ms QT Int : 310 ms P-R-T Axes : 081 -04 061 degrees QTc Int : 445 ms Sinus tachycardia Possible Left atrial enlargement Borderline ECG When compared to the previous EKG of Vent. rate has increased Referred By: Yamilet Hobson Electronically Signed By:SAIMA GORDON MD
[2022-08-03 14:39] LABS: Alanine Aminotransferase 15 U/L (0-31); Albumin Level 5.1 g/dL (3.5-5.0); Alkaline Phosphatase 68 U/L (39-117); Anion Gap 14 (12-20); Aspartate Amino Transferase 20 U/L (5-31); Bilirubin Direct 0.2 mg/dL (0.0-0.5); Bilirubin Total 0.8 mg/dL (0.0-1.0); Blood Urea Nitrogen 13 mg/dL (9-16); Calcium 9.9 mg/dL (8.4-10.2); Carbon Dioxide 22 mmol/L (22-29); Chloride 107 mmol/L (96-108); Creatinine Clr Calc Pharmacy 65.7; Estimated Glomerular Filt Rate > 60; Glucose Random 114 mg/dL (60-115); HCG Quantitative < 2 mIU/mL; Lipase 12 U/L (8-78); Magnesium 2.6 mg/dL (1.6-2.6); Potassium 3.8 mmol/L (3.3-5.1); Sodium 139 mmol/L (135-145); Total Protein 8.4 g/dL (6.5-8.0)
[2022-08-03] MEDS: LORazepam 1 MG TABLET PO (15:01)
[2022-08-03 15:36] LABS: Appearance Urine Clear; Color Urine Dark Yellow; Glucose Urine UA Negative (Negative); Leukocyte Esterase Urine Moderate (2+) (Negative); Nitrite Urine Negative (Negative); UMIC TRIGGER UACC YES; Urine Blood Moderate (2+) (Negative); Urine Ketones Trace mg/dL (Negative); Urine Protein 100 (2+) mg/dL (Neg-Trace)
[2022-08-03 15:37] LABS: UPreg QC Valid YES; Urine Pregnancy NEGATIVE (NEGATIVE)
[2022-08-03] MEDS: ondansetron HCL 4 MG/2 ML VIAL IVPUSH (15:41)
[2022-08-03] MEDS: 0.9 % Sodium Chloride 1,000 ML 999 ML IV (15:44)
[2022-08-03] MEDS: iohexoL 350 MG/ML 100 ML INFUS..BTL IV (15:56)
[2022-08-03 17:02] VITALS: RESP 84
[2022-08-03 17:09] LABS: Bacteria Urine 1+ (None Seen); UACC Culture Trigger YES
[2022-08-03 17:48] VITALS: PULSE 84
== END 2022-08-03 18:01 | disposition home or self-care (01) ==
PROVIDERS: Physician Assistant; Emergency Provider Emergency Medicine
DX: S20.213A Contusion of bilateral front wall of thorax, initial encounter (principal); K52.9 Noninfective gastroenteritis and colitis, unspecified; R07.81 Pleurodynia; R11.2 Nausea with vomiting, unspecified; R10.13 Epigastric pain; M54.50 Low back pain, unspecified; M54.6 Pain in thoracic spine; Y04.2XXA Assault by strike against or bumped into by another person, initial encounter; Y93.9 Activity, unspecified; Y92.9 Unspecified place or not applicable; Y99.9 Unspecified external cause status; Z79.899 Other long term (current) drug therapy
CPT/HCPCS: 36415; 71260; 74177; 80048; 80076; 81001; 81025; 83690; 83735; 84702; 85025; 87086; 93005; 96361; 96374; 99284; J2405; Q9967

== ENCOUNTER 2022-11-19 09:19 | Outpatient (REF) | payer MEDICAID, SELFPAY ==
[2022-11-19 11:59] LABS: HCG Quantitative < 2 mIU/mL
[2022-11-20 03:38] LABS: Syphilis Screen Nonreactive (Nonreactive)
[2022-11-20 03:51] LABS: HIV AB/AG Nonreactive (Nonreactive); HIV Num 1 0.04 S/CO (0.00-0.99); ~HepC Num1 0.07 S/CO (0.00-0.79); ~Hepatitis C Antibody Nonreactive (Nonreactive)
[2022-11-20 04:15] LABS: CT PCR NOT DETECTED (Not Detect.); NG PCR NOT DETECTED (Not Detect.)
== END 2022-11-19 09:20 | disposition home or self-care (01) ==
LOC: HO.HHCL 09:19
PROVIDERS: Visit Provider Nurse Practitioner Primary Care
DX: Z11.4 Encounter for screening for human immunodeficiency virus [HIV] (principal); Z11.3 Encounter for screening for infections with a predominantly sexual mode of transmission; N92.6 Irregular menstruation, unspecified
CPT/HCPCS: 0353U; 36415; 84702; 86780; 86803; 87389

== ENCOUNTER 2023-03-26 20:11 | Emergency (ER) | payer MEDICAID, SELFPAY ==
[2023-03-26 20:14] VITALS: BP 109/68; PULSE 80; RESP 18; TEMP 36.4; O2SAT 99; BMI 22.0
[2023-03-26 20:34] LABS: MANUAL DIFF FLAG NO
[2023-03-26 20:35] LABS: Basophils Percent Auto 0.3 % (0-2); Eosinophils Absolute Auto 0.1 X10*3/uL (0.0-0.4); Eosinophils Percent Auto 1.6 % (0-4); Hematocrit 37.6 % (37.0-47.0); Hemoglobin 12.6 g/dl (12.0-16.0); Imm Gran Abs Auto 0.01 X10*3/uL (0.00-0.03); Imm Gran Pct Auto 0.1 % (0.0-0.4); Lymphocytes Absolute Auto 1.9 X10*3/uL (1.2-4.9); Lymphocytes Percent Auto 24.2 % (20-40); Mean Corpuscular HGB Conc 33.5 g/dl (31.0-35.0); Mean Corpuscular Hemoglobin 25.8 pg (27.0-33.0); Mean Corpuscular Volume 76.9 fL (80.0-98.0); Mean Platelet Volume 11.4 fL (9.4-12.3); Monocytes Absolute Auto 0.6 X10*3/uL (0.1-1.2); Monocytes Percent Auto 7.5 % (2-11); Neutrophils Absolute Auto 5.1 x10*3/uL (2.0-8.3); Neutrophils Percent Auto 66.3 % (45-73); Platelet Count 169 X10*3/uL (160-400); Red Blood Count 4.89 X10*6/uL (4.20-5.50); White Blood Count 7.7 X10*3/uL (4.8-10.8)
[2023-03-26 20:51] LABS: Alanine Aminotransferase 8 U/L (0-31); Albumin Level 4.7 g/dL (3.5-5.0); Alkaline Phosphatase 50 U/L (39-117); Anion Gap 13 (12-20); Aspartate Amino Transferase 14 U/L (5-31); Bilirubin Direct 0.2 mg/dL (0.0-0.5); Bilirubin Total 0.5 mg/dL (0.0-1.0); Blood Urea Nitrogen 12 mg/dL (9-16); Carbon Dioxide 27 mmol/L (22-29); Chloride 102 mmol/L (96-108); Creatinine Clr Calc Pharmacy 94.5; Estimated Glomerular Filt Rate > 60; Glucose Random 94 mg/dL (60-115); Lipase 19 U/L (8-78); Potassium 3.8 mmol/L (3.3-5.1); Sodium 138 mmol/L (135-145); Total Protein 7.9 g/dL (6.5-8.0)
--- OUTSIDE RECORDS SUMMARY | 2023-03-26 21:20 | XMS_ITS | Continuity of Care Document ---
Author Name Unknown Organization [facility] Jamaicaluis Montesinos [employer] [facility] Address [address] [place] [address], [address] [place] [address]- Care Team Providers Care Dispatcher Service Name Role Phone Not on Staff, PCP Primary Care Physician Unavail able [place] [facility] [place]): [place]17[place]23 - 03/24/23 [facility] [employer] [facility] [address], [address] [place] [address]- Attending Physician: Juana Hassan MD Referring Physician: Sara Nunez CNM Allergies, Adverse Reactions, Alerts Substance Reaction Severity Status Adhesive Bandage Active Immunizations Given and Recorded Vaccine Date Status Refusal Reason tetanus/diphtheria/pertussis, acel(Tdap) 03/25/20 Given Medications Depo-Provera Contraceptive 150 mg/mL intramuscular suspension 1 mL = 150 mg, Intramuscular, Every 3 months, # 1 mL, 4 Refills, Maintenance, 10/04/21 14:42:00 EDT, Suspension, [facility], Partial fill upon patient request if the prescription is for a schedule II opioid drug., 152, cm, 04/28/20 9:... Start Date: 10/04/21 Status: Ordered Depo-Provera Contraceptive 150 mg/mL intramuscular suspension 1 mL = 150 mg, Intramuscular, Every 3 months, # 1 mL, 3 Refills, Maintenance, 06/07/21 16:57:00 EST, Suspension, [facility], Partial fill upon [...] 0 Refills, Maintenance, 03/06/20 10:14:00 EST, Tablet, [facility]/pharmacy #[id number], Partial fill upon patient request [...] 1 each, 5 Refills, Maintenance, 03/06/20 10:29:00EST, [facility]/pharmacy #[id number], Partial fill upon patient request, Use [...] in household: No entered on: 08/08/14 Sex Radiology * Event Display: PDC Limited Viability * Event Display: PDC Limited Viability Authored Date: [id number] OBSTETRICS REPORT PATIENT INFO: CMRN: [id number] BMRN: [id number] : [birth year] (27 yrs)(F) Name: LYDIA GOSS Visit Date: 03/17/2023 11:45 am PERFORMED BY: Performed By: Trinity Prieto RDMS Attending: Nicholas Dos Santos MD Referred By: Sara SOARES Location: [address] INDICATIONS: Abdominal pain in O26.899 viability O36.80_0 VITAL SIGNS: Weight (lb): 120 Height: 5'1 BMI: 22.67 EVALUATION: Num Of Fetuses: 1 Gest. Sac: Seen in the intrauterine cavity Yolk Sac: 4.2 Pole: Visualized Heart Rate(bpm): 117 Cardiac Activity: Present Amniotic Fluid ROSE MARY FV: Early gestation BIOMETRY: GS: 11.3 mm G.Age: 6w 0d NUNO: 11/10/23 CRL: 2.8 mm G.Age: 5w 6d NUNO: 11/11/23 OB HISTORY: : 4 Term: 1 Homar: 2 Livin GESTATIONAL AGE: LMP: 6w 3d Date: 01/31/23 NUNO: 11/07/23 Best: 6w 3d Det. By: LMP (01/31/23) NUNO: 11/07/23 CERVIX UTERUS ADNEXA: Cervix Appears closed Uterus Retroverted Left Ovary Size(cm) 3.47 x 1.73 x 1.8 Vol(ml): 5.66 Appears normal Right Ovary Size(cm) 2.72 x 1.61 x 2.37 Vol(ml): 5.43 Appears normal Cul De Sac No fluid seen Adnexa No anomalies noted Comment Vaginal scanning was done. COMMENTS: There is a live first trimester intrauterine gestation measuring appropriate for gestational age. Nicholas Dos Santos MD Electronically Signed Final Report 03/17/2023 05:32 pm * Event Display: PDC Limited Viability Authored Date: [id number] Please click on pdf link to open report Patient Care team information Care Team Personnel Name: Not on Staff, PCP Position: [facility] Physician (General Medicine) Member Role: PCP Care Team Related Persons Name: PAO ALBERTO Address: [address] Address: home [address] [place] [address] Name: PIERO CLOUD Name: SHAD CLOUD Address: home [address] [place] [address] Name: BABATUNDE RAMIREZ Address: [address] [address]
--- NOTE | 2023-03-26 21:21 | ED_ITS ---
HPI - Nausea/Vomiting/Diarrhea General Chief complaint: Nausea/Vomiting/Diarrhea Stated complaint: vomiting 7 wks Time Seen by Provider: 03/26/23 21:16 Source: patient Mode of arrival: ambulatory Limitations: no limitations History of Present Illness HPI Narrative: Patient is , 7 weeks 5 days comes in for persistent vomiting unable to take any solids or liquids patient discussed vomiting every time she gets and ultrasound last week at [facility] no vaginal bleed no cramping no fever had some chills no urine complaints Related Data Previous Rx's Medication Instructions Recorded benzonatate 100 mg capsule 100 mg PO TID PRN cough #14 caps 08/25/20 (Tessalon Perles) fluticasone propionate 50 2 spray intranasal DAILY #16 grams 08/25/20 mcg/actuation nasal spray,suspension (Flonase Allergy Relief) benzonatate 200 mg capsule 200 mg PO TID PRN cough #20 caps 07/26/22 doxycycline monohydrate 100 mg 100 mg PO BID #20 caps 07/26/22 capsule prednisone 20 mg tablet 40 mg (2 x 20 mg) PO DAILY #10 tabs 07/26/22 ondansetron 4 mg disintegrating 4 mg PO Q8H PRN nausea and 08/03/22 tablet vomiting #10 tabs doxylamine 10 mg-pyridoxine (vit 2 tab PO BEDTIME #30 tabs 03/27/23 B6) 10 mg tablet,delayed release metoclopramide HCl 10 mg tablet 10 mg PO Q6H PRN nausea and 03/27/23 (Reglan) vomiting #30 tabs Allergies Allergy/AdvReac Type Severity Reaction Status Date / Time No Known Allergies Allergy Verified 08/03/22 11:33 [No Known Allergies*] Review of Systems 2 Review of Systems: Yes all other systems are reviewed and are negative [facility] Social History Social History Alcohol intake: never Smoked in Last 30 Days: No Use of substances other than those prescribed or required for medical reasons: No Advance Directives: No Advance Directives Information Provided: No Physical Exam 2 Vital Signs: Vital Signs: Last Vital Signs Temp 98.5 F 03/27/23 03:48 Pulse 103 H 03/27/23 03:48 Resp 16 03/27/23 03:48 BP 99/48 L 03/27/23 03:48 Pulse Ox 97 03/27/23 03:48 O2 Del Method Room Air 03/27/23 03:48 BMI result Body Mass Index 22.0 Appearance: Alert. Oriented X3. No acute distress. Eyes: No pallor or icterus ENT: Pharynx normal. Oral Mucosa moist Neck: Normal inspection. Neck supple. CVS: Normal heart rate and rhythm. Pulses normal. Respiratory: No respiratory distress. Equal air entry bilateral, no wheezing/rales/rhonchi Abdomen: Soft and nontender. Bowel sounds are present, no mass palpable, no CVA tenderness Skin: Skin warm and dry. Normal skin color. Normal skin turgor. Extremities: No lower extremity edema. No calf tenderness Neuro: Oriented X 3. Medications Administered Discontinued Medications Generic Name Dose Route Start Last Admin Trade Name Freq PRN Reason Stop Dose Admin Sodium Chloride 1,000 mls @ 999 mls/hr 03/26/23 21:20 03/26/23 23:29 Ns IV 03/26/23 22:20 Infused .Q1H1M ONE Infusion Sodium Chloride 1,000 mls @ 999 mls/hr 03/26/23 23:32 03/27/23 01:04 Ns IV 03/27/23 00:32 Infused .Q1H1M ONE Infusion Sodium Chloride 1,000 mls @ 999 mls/hr 03/27/23 01:27 03/27/23 03:14 Ns IV 03/27/23 02:27 Infused .Q1H1M ONE Infusion Metoclopramide HCl 10 mg 03/27/23 01:27 03/27/23 01:40 Metoclopramide Hcl 10 Mg/2 Ml Vial IVPUSH 03/27/23 01:28 10 mg ONCE ONE Administration Ondansetron HCl 4 mg 03/26/23 21:20 03/26/23 21:53 Ondansetron Hcl 4 Mg/2 Ml Vial IVPUSH 03/26/23 21:21 4 mg ONCE ONE Administration Ondansetron HCl 4 mg 03/26/23 23:32 03/26/23 23:54 Ondansetron Hcl 4 Mg/2 Ml Vial IVPUSH 03/26/23 23:33 4 mg ONCE ONE Administration Medical Decision Making Medical Decision Making MDM Narrative: Patient with hyperemesis gravidarum received 3 L of IV fluid , taking p.o. fluids discharge patient home on Zofran sublingual tablets along with B12 is to follow with her [facility] Lab Data MDM Lab Attestation statement: I reviewed the patient's lab results. 03/26/23 20:30 03/26/23 20:30 Labs: Lab Results 03/26/23 03/27/23 03/27/23 Range/Units 20:30 01:37 02:34 WBC 7.7 (4.8-10.8) X10*3/uL RBC 4.89 (4.20-5.50) X10*6/uL Hgb 12.6 (12.0-16.0) g/dl Hct 37.6 (37.0-47.0) % MCV 76.9 L (80.0-98.0) fL MCH 25.8 L (27.0-33.0) pg MCHC 33.5 (31.0-35.0) g/dl RDW 12.0 (11.0-16.0) % Plt Count 169 D (160-400) X10*3/uL MPV 11.4 (9.4-12.3) fL Immature Gran % (Auto) 0.1 (0.0-0.4) % Neut % (Auto) 66.3 (45-73) % Lymph % (Auto) 24.2 (20-40) % [place] % (Auto) 7.5 (2-11) % Eos % (Auto) 1.6 (0-4) % Baso % (Auto) 0.3 (0-2) % Lymph # (Auto) 1.9 (1.2-4.9) X10*3/uL [place] # (Auto) 0.6 (0.1-1.2) X10*3/uL Eos # (Auto) 0.1 (0.0-0.4) X10*3/uL Baso # (Auto) 0.0 (0.0-0.2) X10*3/uL Abs Immat Gran (auto) 0.01 (0.00-0.03) X10*3/uL Absolute Neuts (auto) 5.1 (2.0-8.3) x10*3/uL Absolute Nucleated RBC 0.000 (0.0-0.012) X10*3/uL Nucleated RBC % (auto) 0.0 (0.0-0.2) /100WBC Sodium 138 (135-145) mmol/L Potassium 3.8 (3.3-5.1) mmol/L Chloride 102 (96-108) mmol/L Carbon Dioxide 27 (22-29) mmol/L Anion Gap 13 (12-20) BUN 12 (9-16) mg/dL Creatinine 0.68 (0.5-1.4) mg/dL Estim Creat Clear Calc 94.5 Estimated GFR > 60 Random Glucose 94 (60-115) mg/dL Calcium 10.0 (8.4-10.2) mg/dL Total Bilirubin 0.5 (0.0-1.0) mg/dL Direct Bilirubin 0.2 (0.0-0.5) mg/dL AST 14 (5-31) U/L ALT 8 (0-31) U/L Alkaline Phosphatase 50 (39-117) U/L Total Protein 7.9 (6.5-8.0) g/dL Albumin 4.7 (3.5-5.0) g/dL Lipase 19 (8-78) U/L Urine Color Yellow Urine Appearance Cloudy Urine pH 6.5 (5.0-9.0) Ur Specific [place] 1.025 (1.005-1.025) Urine Protein Negative (Neg-Trace) mg/dL Urine Glucose (UA) Negative (Negative) mg/dL Urine Ketones 15 (Negative) mg/dL Urine Blood Negative (Negative) Urine Nitrite Negative (Negative) Ur Leukocyte Esterase Small (1+) H (Negative) Urine RBC 0-2 (0-2) /HPF Urine WBC 0-5 (0-5) /HPF Ur Squamous Epith Cells 6-10 (0-2) /HPF Urine Bacteria 3+ (None Seen) Hyaline Casts 3-5 (0-2) /LPF Influenza Type A (PCR) NEGATIVE (Negative) Influenza Type B (PCR) NEGATIVE (Negative) RSV RNA Qual (PCR) NEGATIVE (Negative) SARS-CoV-2 RNA (RT-PCR) NEGATIVE (Negative) Discharge Plan Discharge Clinical Impression: Hyperemesis gravidarum Patient Disposition: Home, Self-Care Instructions: Hyperemesis Gravidarum (ED) Additional Instructions: Drink plenty of fluids Take medication for nausea as prescribed Take pyridoxin daily Prescriptions: New doxylamine-pyridoxine (vit B6) 10-10 mg tablet,delayed release (DR/EC) 2 tab PO BEDTIME Qty: 30 0RF metoclopramide HCl [Reglan] 10 mg tablet 10 mg PO Q6H PRN (Reason: nausea and vomiting) Qty: 30 0RF No Action fluticasone propionate [Flonase Allergy Relief] 50 mcg/actuation spray,suspension 2 spray intranasal DAILY Qty: 16 0RF Rx Instructions: administer into each nostril benzonatate [Tessalon Perles] 100 mg capsule 100 mg PO TID PRN (Reason: cough) Qty: 14 0RF doxycycline monohydrate 100 mg capsule 100 mg PO BID Qty: 20 0RF prednisone 20 mg tablet 40 mg PO DAILY Qty: 10 0RF benzonatate 200 mg capsule 200 mg PO TID PRN (Reason: cough) Qty: 20 0RF ondansetron 4 mg tablet,disintegrating 4 mg PO Q8H PRN (Reason: nausea and vomiting) Qty: 10 0RF Interventions: ED Discharge Assessment Last Done: 03/27/23 03:56 Discharge Date/Time: 03/27/23 03:56
[2023-03-26 21:49] VITALS: BP 108/55; PULSE 85; RESP 16; TEMP 36.9; O2SAT 98
[2023-03-26] MEDS: 0.9 % Sodium Chloride 1,000 ML 999 ML IV ×2 (21:53→23:54)
[2023-03-26] MEDS: ondansetron HCL 4 MG/2 ML VIAL IVPUSH ×2 (21:53→23:54)
[2023-03-26 23:29] VITALS: BP 99/48; PULSE 92; RESP 16; O2SAT 98
--- NOTE | 2023-03-26 23:35 | PC.NURSE ---
pt reports still nauseous; bp low as documented. Dr. Carlson notified. new orders ivf infusing and zofran given. call nettles within reach.
[2023-03-27 00:54] VITALS: BP 101/46; PULSE 94; RESP 18; TEMP 36.7; O2SAT 100
[2023-03-27] MEDS: Metoclopramide HCl 10 MG/2 ML VIAL IVPUSH (01:40)
[2023-03-27] MEDS: 0.9 % Sodium Chloride 1,000 ML 999 ML IV (01:40)
--- NOTE | 2023-03-27 01:44 | PC.NURSE ---
pt continues to feel nauseous. 1 episode of mucous like vomit. pt medicated per mar ivf infusing. vss. call nettles within reach.
[2023-03-27 02:24] LABS: Influenza A PCR NEGATIVE (Negative); Influenza B PCR NEGATIVE (Negative); Resp Syncy Virus RNA Qual PCR NEGATIVE (Negative); SARS COV2 PCR INHOUSE NEGATIVE (Negative)
[2023-03-27 02:43] LABS: Appearance Urine Cloudy; Color Urine Yellow; Glucose Urine UA Negative (Negative); Leukocyte Esterase Urine Small (1+) (Negative); Nitrite Urine Negative (Negative); PH 6.5 (5.0-9.0); Specific Gravity - Urine 1.025 (1.005-1.025); UMIC TRIGGER UACC YES; Urine Blood Negative (Negative); Urine Ketones 15 mg/dL (Negative); Urine Protein Negative (Neg-Trace)
[2023-03-27 03:15] LABS: Bacteria Urine 3+ (None Seen); RBC Urine 0-2 /HPF (0-2); UACC Culture Trigger YES; WBC Urine 0-5 /HPF (0-5)
[2023-03-27 03:48] VITALS: BP 99/48; PULSE 103; RESP 16; TEMP 36.9; O2SAT 97
== END 2023-03-27 03:56 | disposition home or self-care (01) ==
PROVIDERS: Emergency Provider Internal Medicine
DX: O21.0 Mild hyperemesis gravidarum (principal); Z3A.01 Less than 8 weeks gestation of pregnancy; Z20.822 Contact with and (suspected) exposure to COVID-19; Z20.828 Contact with and (suspected) exposure to other viral communicable diseases
CPT/HCPCS: 0241U; 36415; 80048; 80076; 81001; 83690; 85025; 87086; 96361; 96374; 96375; 96376; 99285; J2405; J2765

== ENCOUNTER 2024-09-29 12:04 | Emergency (ER) | payer MEDICAID, SELFPAY ==
--- NOTE | ~2024-09-29 | CT_ITS ---
CLINICAL HISTORY: left flank pain CT abdomen and pelvis without contrast Comparison: None provided Findings: No consolidation or effusion. Unremarkable gallbladder and solid organs. No urolithiasis. No bowel obstruction, pneumoperitoneum, or pneumatosis. There is an 18 mm region of fat density at the anterior aspect of the distal descending colon with moderate surrounding fat stranding. Pelvic contents unremarkable. Normal appendix. No acute fracture. IMPRESSION: Epiploic appendagitis. This document has been electronically signed by: Viral Burgess MD on 09/29/2024 15:28:18
--- NOTE | ~2024-09-29 | US_ITS ---
CLINICAL HISTORY: left pelvic pain US pelvis transabdominal and transvaginal with Doppler Comparison: None provided Findings: Transabdominal scanning performed for overall anatomy. Transvaginal scanning performed for additional detail. Anteverted uterus is 7.5 cm length. Normal myometrium. No endometrial lesion, 2 mm thickness. Right ovary 4.0 x 1.9 x 1.7 cm. Left ovary 2.7 x 2.0 x 1.8 cm. Prominent bilateral adnexal venous vasculature. Normal color Doppler with arterial/venous spectral tracing of both ovaries. No free fluid. IMPRESSION: 1. No acute process. 2. Findings which would be consistent with pelvic congestion syndrome in the appropriate clinical setting. This document has been electronically signed by: Viral Burgess MD on 09/29/2024 14:59:07
--- NOTE | 2024-09-29 12:10 | ED_ITS ---
HPI - Abdominal Pain General Chief Complaint: Abdominal Pain Stated Complaint: abd pain Time Seen by Provider: 09/29/24 12:25 Source: patient and RN notes reviewed Mode of arrival: ambulatory Limitations: no limitations History of Present Illness ED Provider: Aleksander HPI narrative: 29-year-old female with no significant past medical history presents for evaluation of left lower abdominal pain. The patient reports that her symptoms started on Tuesday, 4 days ago Her pain was initially 10/10. Her pain is somewhat decreased down to 7/10 She had associated nausea but no vomiting. She reports having 1 episode of diarrhea She had not noticed any blood in her stool. Denies any abnormal vaginal bleeding or discharge. She reports that she was tested for sexually transmitted infections 2 days ago on Denies any history abdominal surgeries. She has been using Depo-Provera shots and has not had a menstrual cycle in about 5 years Denies any burning with urination. She went to urgent care this afternoon and was referred to the ED for ?a CT scan and an ultrasound. Related Data Previous Rx's ?Medication ?Instructions ?Recorded benzonatate 100 mg capsule 100 mg PO TID PRN cough #14 caps 08/25/20 (Tessalon Perles) fluticasone propionate 50 2 spray intranasal DAILY #16 grams 08/25/20 mcg/actuation nasal spray,suspension (Flonase Allergy Relief) benzonatate 200 mg capsule 200 mg PO TID PRN cough #20 caps 07/26/22 doxycycline monohydrate 100 mg 100 mg PO BID #20 caps 07/26/22 capsule prednisone 20 mg tablet 40 mg (2 x 20 mg) PO DAILY # 10 tabs 07/26/22 ondansetron 4 mg disintegrating 4 mg PO Q8H PRN nausea and 08/03/22 tablet vomiting #10 tabs doxylamine 10 mg-pyridoxine (vit 2 tab PO BEDTIME #30 tabs 03/27/23 B6) 10 mg tablet,delayed release metoclopramide HCl 10 mg tablet 10 mg PO Q6H PRN nause a and 03/27/23 (Reglan) vomiting #30 tabs ketorolac 10 mg tablet 10 mg PO Q8H PRN pain #12 ta bs 09/29/24 Allergies Allergy/AdvReac Type Severity Reaction Status Date / Time No Known Allergies (No Known Allergy Verified 09/29/24 12:11 Allergies*) Review of Systems Constitutional: Denies body ache(s), Denies chills, Denies fever(s) and Denies headache(s) Eyes: Denies blurry vision Denies dizziness and Denies headache(s) Cardiovascular: Denies chest pain and Denies dyspnea on exertion Respiratory: Denies cough and Denies dyspnea on exertion Gastrointestinal: Reports abdominal pain, Denies belching, Denies melena, Denies coffee ground emesis, Denies constipation, Reports diarrhea, Reports nausea and Denies vomiting Genitourinary: Denies dysmenorrhea, Denies dysuria, Reports pelvic pain, Reports flank pain and Denies urinary urgency Musculoskeletal: Denies back pain Skin/Breast: Denies rash Denies dizziness and Denies headache(s) Psychiatric: Denies anxiety PMFSH Social History Social History Alcohol intake: never Smoked in Last 30 Days: No Use of substances other than those prescribed or required for medical reasons: No Advance Directives: No Advance Directives Information Provided: Yes Do you have a plan to hurt others: No Plan Physical Exam ED Vital Signs: Vital Signs - 24 hr 09/29/24 12:11 09/29/24 14:59 Temperature 98 F 98.3 F Pulse Rate 78 69 Respiratory Rate 16 16 Blood Pressure 122/72 100/40 L Pulse Oximetry 96 98 Oxygen Delivery Method Room Air Room Air BMI result Body Mass Index 26.5 Const General: healthy appearing, comfortable, no acute distress, alert and awake Nutritional Appearance: well nourished Orientation/consciousness: patient oriented x3 [facility]: Yes normocephalic and Yes atraumatic Throat: Yes posterior oropharynx normal Eyes Eyelids: Yes eyelids normal Conjunctivae: conjunctivae normal Sclerae: sclerae normal Corneas: corneas normal Pupils: Equal, round and reactive pupils present EOM: EOMs intact bilaterally Neck Neck: Yes full ROM Resp Effort & Inspection: normal respiratory effort, able to speak in complete sentences and not labored GI Inspection: No distended Palpation (GI): Soft to palpation, not firm, Tenderness to palpation present (GI) in the LLQ and in the LUQ, Guarding due to palpation present (GI) in the LLQ and in the LUQ and not rigid Skin General skin exam: elasticity normal Neuro General: patient oriented x3 Cranial nerves: Yes Equal, round and reactive pupils present and Yes Bilaterally intact EOM present Cognition (Neuro): normal cognition Extrem Other: Moving all extremities well without any obvious deformities Course Course Course Narrative: Juliana Sherwoodmartina ESCOBAR This is a rapid medical exam. Deferred additional HPI, ROS, PE to primary provider. 29 yo female with no known medical history here with complaints of left sided lower abdominal pain described as cramping with radiation to the back since Tuesday. No abdominal surgical history. Went to [facility] and had a pelvic exam with STI testing. Does not know results. Continued pain today. Went to walk in and referred in to the ER for imaging. No vomiting, diarrhea, fevers, vaginal discharge. No new sexual partners. On depo (does not have menses). Will obtain labs, UA, ur preg. VSS Medical Decision Making Medical Decision Making [facility] Narrative: 29-year-old female presents for evaluation of left lower abdominal pain. She was found to have blood in her urine in an outpatient setting. Concern for obstructive uropathy. Her pain seems more left lower abdominal and left upper abdominal, so I feel that pelvic pathology is favored to be less likely but still on differential is tubo-ovarian abscess, ovarian torsion, ovarian cyst. She could also have colitis and diverticulitis and she did have an episode of diarrhea this morning. Bowel obstructions favored to be less likely. Plan for labs, CT scan of the abdomen pelvis without contrast an ultrasound of the pelvis. Differential Diagnosis Differential Diagnoses: The differential diagnosis associated with the presentation includes As above Lab Data [facility] Lab Attestation statement: I reviewed the patient's lab results. No leukocytosis or anemia. Normal platelet count. No electrolyte abnormalities warranting intervention. 09/29/24 12:29 09/29/24 12:29 Labs: Lab Results 09/29/24 09/29/24 Range/Units 12:29 12:30 WBC 6.8 (4.8-10.8) X10*3/uL RBC 4.80 (4.20-5.50) X10*6/uL Hgb 12.7 (12.0-16.0) g/dl Hct 38.1 (37.0-47.0) % MCV 79.4 L (80.0-98.0) fL MCH 26.5 L (27.0-33.0) pg MCHC 33.3 (31.0-35.0) g/dl RDW 12.3 (11.0-16.0) % Plt Count 192 (160-400) X10*3/uL MPV 12.5 H (9.4-12.3) fL Immature Gran % (Auto) 0.1 (0.0-0.4) % Neut % (Auto) 70.1 (45-73) % Lymph % (Auto) 21.8 (20-40) % Foard % (Auto) 5.9 (2-11) % Eos % (Auto) 1.5 (0-4) % Baso % (Auto) 0.6 (0-2) % Lymph # (Auto) 1.5 (1.2-4.9) X10*3/uL Foard # (Auto) 0.4 (0.1-1.2) X10*3/uL Eos # (Auto) 0.1 (0.0-0.4) X10*3/uL Baso # (Auto) 0.0 (0.0-0.2) X10*3/uL Abs Immat Gran (auto) 0.01 (0.00-0.03) X10*3/uL Absolute Neuts (auto) 4.8 (2.0-8.3) x10*3/uL Absolute Nucleated RBC 0.000 (0.0-0.012) X10*3/uL Nucleated RBC % (auto) 0.0 (0.0-0.2) /100WBC Sodium 141 (135-145) mmol/L Potassium 3.8 (3.3-5.1) mmol/L Chloride 108 (96-108) mmol/L Carbon Dioxide 23 (22-29) mmol/L Anion Gap 14 (12-20) BUN 12 (9-16) mg/dL Creatinine 0.73 (0.5-1.4) mg/dL Estim Creat Clear Calc 98.9 Estimated GFR > 60 Random Glucose 96 (60-115) mg/dL Calcium 9.4 (8.4-10.2) mg/dL Total Bilirubin 0.8 (0.0-1.0) mg/dL Direct Bilirubin 0.2 (0.0-0.5) mg/dL AST 21 (5-31) U/L ALT 20 (0-31) U/L Alkaline Phosphatase 74 (39-117) U/L Total Protein 7.6 (6.5-8.0) g/dL Albumin 4.8 (3.5-5.0) g/dL Lipase 17 (8-78) U/L Urine Color Yellow Urine Appearance Clear Urine pH 6.0 (5.0-9.0) Ur Specific [place] 1.020 (1.005-1.025) Urine Protein Trace (Neg-Trace) mg/dL Urine Glucose (UA) Negative (Negative) mg/dL Urine Ketones Trace (Negative) mg/dL Urine Blood Trace H (Negative) Urine Nitrite Negative (Negative) Ur Leukocyte Esterase Negative (Negative) Urine RBC 3-5 H (0-2) /HPF Urine WBC 0-5 (0-5) /HPF Ur Squamous Epith Cells 6-10 (0-2) /HPF Urine Bacteria None Seen (None Seen) Hyaline Casts 0-2 (0-2) /LPF Urine Test NEGATIVE (NEGATIVE) Radiology Impression Discussion of test interpretation with radiology: I have reviewed the radiologist's reading. Radiologist Impression: Findings: No consolidation or effusion. Unremarkable gallbladder and solid organs. No urolithiasis. No bowel obstruction, pneumoperitoneum, or pneumatosis. There is an 18 mm region of fat density at the anterior aspect of the distal descending colon with moderate surrounding fat stranding. Pelvic contents unremarkable. Normal appendix. No acute fracture. IMPRESSION: Epiploic appendagitis. This document has been electronically signed by: Viral Burgess MD on 09/29/2024 15:28:18 Findings: Transabdominal scanning performed for overall anatomy. Transvaginal scanning performed for additional detail. Anteverted uterus is 7.5 cm length. Normal myometrium. No endometrial lesion, 2 mm thickness. Right ovary 4.0 x 1.9 x 1.7 cm. Left ovary 2.7 x 2.0 x 1.8 cm. Prominent bilateral adnexal venous vasculature. Normal color Doppler with arterial/venous spectral tracing of both ovaries. No free fluid. IMPRESSION: 1. No acute process. 2. Findings which would be consistent with pelvic congestion syndrome in the appropriate clinical setting. This document has been electronically signed by: Viral Burgess MD on 09/29/2024 14:59:07 Discharge Plan Discharge Clinical Impression: Epiploic appendagitis, Hematuria Patient Disposition: Home, Self-Care Instructions: Epiploic Appendagitis (ED) Additional Instructions: Your CT scan showed a finding called epiploic appendagitis. This is likely the cause of your abdominal discomfort and should resolve on its own. You may use ketorolac and as needed for pain. You should not use additional NSAIDs such as ibuprofen, Advil, Aleve, Motrin You had some blood in your urine, I recommend you talk to your primary doctor and get a repeat urinalysis in 2 weeks. If you still have blood in your urine, you should be referred to Urology Prescriptions: New ketorolac 10 mg tablet 10 mg PO Q8H PRN (Reason: pain) Qty: 12 0RF Rx Instructions: maximum total duration of 5 days from all oral, intranasal, or parenteral formulations No Action fluticasone propionate [Flonase Allergy Relief] 50 mcg/actuation spray,suspension 2 spray intranasal DAILY Qty: 16 0RF Rx Instructions: administer into each nostril benzonatate [Tessalon Perles] 100 mg capsule 100 mg PO TID PRN (Reason: cough) Qty: 14 0RF doxylamine-pyridoxine (vit B6) 10-10 mg tablet,delayed release (DR/EC) 2 tab PO BEDTIME Qty: 30 0RF metoclopramide HCl [Reglan] 10 mg tablet 10 mg PO Q6H PRN (Reason: nausea and vomiting) Qty: 30 0RF doxycycline monohydrate 100 mg capsule 100 mg PO BID Qty: 20 0RF prednisone 20 mg tablet 40 mg PO DAILY Qty: 10 0RF benzonatate 200 mg capsule 200 mg PO TID PRN (Reason: cough) Qty: 20 0RF ondansetron 4 mg tablet,disintegrating 4 mg PO Q8H PRN (Reason: nausea and vomiting) Qty: 10 0RF Print Language: Armenian
[2024-09-29 12:11] VITALS: BP 122/72; PULSE 78; RESP 16; TEMP 36.6; O2SAT 96; BMI 26.5
[2024-09-29 12:36] LABS: MANUAL DIFF FLAG NO
[2024-09-29 12:51] LABS: Alanine Aminotransferase 20 U/L (0-31); Albumin Level 4.8 g/dL (3.5-5.0); Alkaline Phosphatase 74 U/L (39-117); Anion Gap 14 (12-20); Aspartate Amino Transferase 21 U/L (5-31); Bilirubin Direct 0.2 mg/dL (0.0-0.5); Bilirubin Total 0.8 mg/dL (0.0-1.0); Blood Urea Nitrogen 12 mg/dL (9-16); Calcium 9.4 mg/dL (8.4-10.2); Carbon Dioxide 23 mmol/L (22-29); Chloride 108 mmol/L (96-108); Creatinine Clr Calc Pharmacy 98.9; Estimated Glomerular Filt Rate > 60; Glucose Random 96 mg/dL (60-115); Lipase 17 U/L (8-78); Potassium 3.8 mmol/L (3.3-5.1); Sodium 141 mmol/L (135-145); Total Protein 7.6 g/dL (6.5-8.0)
[2024-09-29 12:59] LABS: Basophils Percent Auto 0.6 % (0-2); Eosinophils Absolute Auto 0.1 X10*3/uL (0.0-0.4); Eosinophils Percent Auto 1.5 % (0-4); Hematocrit 38.1 % (37.0-47.0); Hemoglobin 12.7 g/dl (12.0-16.0); Imm Gran Abs Auto 0.01 X10*3/uL (0.00-0.03); Imm Gran Pct Auto 0.1 % (0.0-0.4); Lymphocytes Absolute Auto 1.5 X10*3/uL (1.2-4.9); Lymphocytes Percent Auto 21.8 % (20-40); Mean Corpuscular HGB Conc 33.3 g/dl (31.0-35.0); Mean Corpuscular Hemoglobin 26.5 pg (27.0-33.0); Mean Corpuscular Volume 79.4 fL (80.0-98.0); Mean Platelet Volume 12.5 fL (9.4-12.3); Monocytes Absolute Auto 0.4 X10*3/uL (0.1-1.2); Monocytes Percent Auto 5.9 % (2-11); Neutrophils Absolute Auto 4.8 x10*3/uL (2.0-8.3); Neutrophils Percent Auto 70.1 % (45-73); Platelet Count 192 X10*3/uL (160-400); Red Cell Distribution Width 12.3 % (11.0-16.0); White Blood Count 6.8 X10*3/uL (4.8-10.8)
[2024-09-29 13:01] LABS: Appearance Urine Clear; Color Urine Yellow; Glucose Urine UA Negative (Negative); Leukocyte Esterase Urine Negative (Negative); Nitrite Urine Negative (Negative); UMIC TRIGGER UACC YES; Urine Blood Trace (Negative); Urine Ketones Trace mg/dL (Negative); Urine Protein Trace mg/dL (Neg-Trace)
[2024-09-29 13:02] LABS: UPreg QC Valid YES; Urine Pregnancy NEGATIVE (NEGATIVE)
[2024-09-29 13:06] LABS: Bacteria Urine None Seen (None Seen); Hyaline Casts Urine 0-2 /LPF (0-2); WBC Urine 0-5 /HPF (0-5)
--- OUTSIDE RECORDS SUMMARY | 2024-09-29 13:43 | XMS_ITS | Encounter Summary ---
Author Organization [employer] Address [address] [place] [address] Care Team Providers Care [employer] Teacher Name Role Phone Desirae Claros NETWORK CONTROL SUPERVISOR Primary Care Provider [phone] Encounter Details Date Type Department Care Team (Late st Contact Info) Description 09/29/2024 Orders Only GENERIC EXTERNAL DATA DEPARTMENT Provider, Generic External Data Social History Tobacco Use Types Packs/Day Years Used Date Smoking Tobacco: Never Passive Smoke Exposure: Never Smokeless Tobacco: Never Alcohol Use Standard Drinks/Week Comments Never 0 (1 standard drink = 0.6 oz pur e alcohol) Depression Answer Date Recorded Patient Health Questionnaire-9 Score 0 03/02/2023 Patient Health Questionnaire-9 Score 0 03/02/2023 Last PHQ-9: Questionnaire Data Not on file 1 05/02/2022 Housing Stability Answer Date Recorded What is your housing situation today? I have chris mccormick 10/18/[address] you li ve. Do you have problems with any of the following? None of the above 10/18/2023 Food Insecurity Answer Date Recorded Within the past 12 months, y ou worried that your food would run out before you got money to buy more: Never True 10/18/2023 Within the past 12 months,th e food you bought just didn't last and you didn't have enough money to get more: Never True Transportation Answer Date Recorded In the past 12 months, has l ack of transportation kept you from medical appts, meetings, work or from getting things needed for daily living? No 10/18/2023 Utilities Answer Date Recorded In the past 12 months, has t he electric, gas, oil or water company threatened to shut off services in your home? No 10/18/2023 Depression Answer Date Recorded Patient Health Questionnaire-2 Score 0 03/02/2023 Internet Access Answer Date Recorded Internet Access Q1 Yes 12/05/2023 Internet Access Q2 Not on file 12/05/2023 Comments Unknown Sex and Gender Information Value Date Recorded Sex Assigned at Female 02/01/2022 10:18 AM EDT Legal Sex Female 10:18 AM EDT Gender Identity Female 02/01/2022 10:18 AM EDT Sexual Orientation Straight 02/01/2022 10 :18 AM EDT documented as of this encounter Plan of Treatment Upcoming Encounters Date Type Department Care Team (Late st Contact Info) Description 11/05/2024 2:00 PM EDT Office Visit [facility] [address], [place] [phone] [facility], NETWORK CONTROL SUPERVISOR [address] [place], [place] [phone] documented as of this encounter Procedures Procedure Name Priority Date/Time Associated Diagnosis Comments URINALYSIS, COMPLETE, WITH REFLEX TO CULTURE Routine 09/29/2024 12:30 PM EDT HCG, QL, URINE Routine 09/29/2024 12:30 PM EDT CBC WITH AUTO DIFFERENTIAL Routine 09/29/2024 12:29 PM EDT LIPASE Routine 09/29/2024 12:29 PM EDT HEPATIC FUNCTION PANEL Routine 09/29/2024 12:29 PM EDT BASIC METABOLIC PANEL Routine 09/29/2024 12:29 PM EDT documented in this encounter Results * HCG, Qualitative, Urine (09/29/2024 12:30 PM EDT) Urine NEGATIVE NEGATIVE [facility] Comment:This test was develo ped to detect early . Falsenegative results may occur after the 5th - 7th week ofpregnancy when using this test method. If clinicallyindicated, consider a serum hCG. 09/29/2024 12:3 0 PM EDT 09/29/2024 12:34 PM EDT us Generic External Data Provider LAB URINE ORDERAB LES Final Result Performing Organization Address [facility]/ZIP Co de Phone Number [facility] [address] [place] [address] [phone] * (ABNORMAL) Urinalysis, Complete, with Reflex to Culture (09/29/2024 12:30 PM EDT) Color Urine Yellow [facility] Appearance Urine Clear [facility] PH 6.0 5.0 - 9.0 [facility] Glucose Urine UA Negative Negative mg/dL [facility] Urine Blood Trace(A) Negative [facility] Specific [place] - Urine 1.020 1.005 - 1.025 [facility] Urine Protein Trace Neg-Trace mg/dL [facility] Urine Ketones Trace Negative mg/dL [facility] Nitrite Urine Negative Negative [facility] Leukocyte Esterase Urine Negative Negative [facility] RBC Urine 3-5(A) 0 - 2 /HPF [facility] Urine WBC 0-5 0 - 5 /HPF [facility] Urine Squamous Epithelial Cell 6-10 0 - 2 /HPF [facility] Urine Bacteria None Seen None Seen [facility] Hyaline Casts, Urine 0-2 0 - 2 /LPF [facility] 09/29/2024 12:3 0 PM EDT 09/29/2024 12:34 PM EDT Narrative [facility] - 09/29/2024 1:12 PM EDT Urine, Clean Catch us Generic External Data Provider LAB URINE ORDERAB LES Final Result Performing Organization Address [facility]/ZIP Co de Phone Number [facility] [address] [place] [address] [phone] * (ABNORMAL) CBC auto differential (09/29/2024 12:29 PM EDT) White Blood Count 6.8 4.8 - 10.8 X10*3/uL [facility] Red Blood Count 4.80 4.20 - 5.50 X10*6/uL [facility] Hemoglobin 12.7 12.0 - 16.0 g/dl [facility] Hematocrit 38.1 37.0 - 47.0 % [facility] Mean Corpuscular Volume 79.4(L) 80.0 - 98.0 fL [facility] Mean Corpuscular Hemoglobin 26.5(L) 27.0 - 33.0 pg [facility] Mean Corpuscular HGB Conc 33.3 31.0 - 35.0 g/dl [facility] Red Cell Distribution Width 12.3 11.0 - 16.0 % [facility] Platelet Count 192 160 - 400 X10*3/uL [facility] Mean Platelet Volume 12.5(H) 9.4 - 12.3 [facility] Neutrophils Percent Auto 70.1 45 - 73 % [facility] Imm Gran Pct Auto 0.1 0.0 - 0.4 % [facility] Lymphocytes Percent Auto 21.8 20 - 40 % [facility] Monocytes Percent Auto 5.9 2 - 11 % [facility] Eosinophils Percent Auto 1.5 0 - 4 % [facility] Basophils Percent Auto 0.6 0 - 2 % [facility] NRBC Pct Auto 0.0 0.0 - 0.2 /100WBC [facility] Neutrophils Absolute Auto 4.8 2.0 - 8.3 x10*3/uL [facility] Imm Gran Abs Auto 0.01 0.00 - 0.03 X10*3/uL [facility] Lymphocytes Absolute Auto 1.5 1.2 - 4.9 X10*3/uL [facility] Monocytes Absolute Auto 0.4 0.1 - 1.2 X10*3/uL [facility] Eosinophils Absolute Auto 0.1 0.0 - 0.4 X10*3/uL [facility] Basophils Absolute Auto 0.0 0.0 - 0.2 X10*3/uL [facility] NRBC Abs Auto 0.000 0.0 - 0.012 X10*3/uL [facility] 09/29/2024 12:2 9 PM EDT 09/29/2024 12:34 PM EDT Generic External Data Provider LAB BLOOD ORDERAB LES Final Result Performing Organization Address [facility]/ZIP Co de Phone Number [facility] [address] [place] [phone] * Lipase (09/29/2024 12:29 PM EDT) Pathologist [facility] Lipase 17 8 - 78 U/L [facility] 09/29/2024 12:2 9 PM EDT 09/29/2024 12:34 PM EDT Generic External Data Provider LAB BLOOD ORDERAB LES Final Result Performing Organization Address [facility] Co de Phone Number [facility] [address] [place] [phone] * Basic Metabolic Panel (09/29/2024 12:29 PM EDT) Sodium 141 135 - 145 mmol/L [facility] Potassium 3.8 3.3 - 5.1 mmol/L [facility] Chloride 108 96 - 108 mmol/L [facility] Carbon Dioxide 23 22 - 29 mmol/L [facility] Anion Gap 14 12 - 20 [facility] Urea Nitrogen (BUN) 12 9 - 16 mg/dL [facility] Creatinine, Serum 0.73 0.5 - 1.4 mg/dL [facility] Creatinine Clr Calc Pharmacy 98.9 [facility] Comment:Provided height and weight: 154.94 cm,63.7 kg.eGFR (calculated from the MDRD study equation) and eCrCl(calculated from the Cockcroft-Gault equation) are based ondifferent parameters and may not yield comparable results.If eCrCl result is absurd, please check patient'sheight/weight. Estimated Glomerular Filt Rate >60 [facility] Comment:Chronic Kidney Disea se: Estimated GFR < 60 mL/min/1.27a1Cdgwod Kidney Disease: Estimated GFR < 15 mL/min/1.73m2 Glucose 96 60 - 115 mg/dL [facility] Calcium 9.4 8.4 - 10.2 mg/dL [facility] 09/29/2024 12:2 9 PM EDT 09/29/2024 12:34 PM EDT Generic External Data Provider LAB BLOOD ORDERAB LES Final Result Performing Organization Address [facility] de Phone Number [facility] [address] [place] [phone] * Hepatic Function Panel (09/29/2024 12:29 PM EDT) Bilirubin, Total 0.8 0.0 - 1.0 mg/dL [facility] Bilirubin, Direct 0.2 0.0 - 0.5 mg/dL [facility] Aspartate Amino Transferase 21 5 - 31 U/L [facility] Alanine Aminotransferase 20 0 - 31 U/L [facility] Total Protein 7.6 6.5 - 8.0 g/dL [facility] Albumin Level 4.8 3.5 - 5.0 g/dL [facility] Alkaline Phosphatase 74 39 - 117 U/L [facility] 09/29/2024 12:2 9 PM EDT 09/29/2024 12:34 PM EDT Generic External Data Provider LAB BLOOD ORDERAB LES Final Result Performing Organization Address [facility] Phone Number [facility] [address] [place] [phone] documented in this encounter Visit Diagnoses Not on filedocumented in this encounter Additional Health Concerns Assessment Noted Time PHQ-9 Depression Total Score: 0 03/02/20 23 3:34 PM EST documented as of this encounter Care Teams [employer] Relationship Specialty Start Date End Date Desirae Claros FNP [address] [place] [phone] PCP - General Family Medicine 06/16/22 Lala Costello Tea Blender 11/01/23 documented as of this encounter
[2024-09-29 14:59] VITALS: BP 100/40; PULSE 69; RESP 16; TEMP 36.8; O2SAT 98
[2024-09-29 15:55] VITALS: BP 100/40; PULSE 69; RESP 16; TEMP 36.8; O2SAT 98
== END 2024-09-29 15:56 | disposition home or self-care (01) ==
PROVIDERS: Nurse Practitioner Family; Emergency Provider Emergency Medicine
DX: R31.9 Hematuria, unspecified (principal); K63.89 Other specified diseases of intestine; R10.2 Pelvic and perineal pain; R11.0 Nausea; R25.2 Cramp and spasm; Z79.899 Other long term (current) drug therapy; Z20.2 Contact with and (suspected) exposure to infections with a predominantly sexual mode of transmission
CPT/HCPCS: 36415; 74176; 76830; 76856; 80048; 80076; 81001; 81003; 81025; 83690; 85025; 93975; 99284

== ENCOUNTER → 2024-09-29 12:47 | Outpatient (BNV) | payer MEDICAID, SELFPAY | PROVIDERS: Emergency Provider Emergency Medicine; Visit Provider Radiology Diagnostic Radiology | DX: K65.9 Peritonitis, unspecified (principal); R10.32 Left lower quadrant pain | CPT/HCPCS: 74176; 76830; 76856; 93975 ==

== ENCOUNTER 2025-02-01 15:43 | Outpatient (REF) | payer MEDICAID, SELFPAY ==
--- OUTSIDE RECORDS SUMMARY | 2025-02-01 15:00 | XMS_ITS | Encounter Summary ---
Author Organization [employer] Address [address] [place] [address] 7 [place] [address] Care Team Providers Care Waiter/Waitress Cafeteria Name Role Phone [facility] Primary Care Provider [phone] Reason for Visit * Reason Comments Follow-up Encounter Details Date Type Department Care Team ([facility] Contact Info) Description 02/01/2025 3:00 PM EDT Office Visit [facility] [address] [place] [address] [place] [address] [place] [address] Dyspepsia (Primary Dx); Constipation, unspecified constipation type Social History Tobacco Use Types Packs/Day Years Used Date Smoking Tobacco: Never Passive Smoke Exposure: Never Smokeless Tobacco: Never Tobacco Cessation:Counseling Given: Not Answered Alcohol Use Standard Drinks/Week Comments Never 0 (1 standard drink = 0.6 oz pur e alcohol) Depression Answer Date Recorded Patient Health Questionnaire-9 Score 0 03/02/2023 Patient Health Questionnaire-9 Score 0 03/02/2023 Last PHQ-9: Questionnaire Data Not on file 1 05/02/2022 Housing Stability Answer Date Recorded What is your housing situation today? I have chrisrajwinder mccormick 10/18/[address] you [...] AM EDT documented as of this encounter Last Filed Vital Signs Vital Sign Reading Time Taken Comments Blood Pressure 118/84 02/01/2025 3:05 PM EDT Pulse 90 02/01/2025 3:05 PM EDT Temperature - - Respiratory Rate 18 02/01/2025 3:05 PM EDT Oxygen Saturation - - Inhaled Oxygen Concentration - - Weight 63.4 kg (139 lb 12.8 oz) 02/01/2025 3:05 PM EDT Height 154.9 cm (5' 1 ) 02/01/2025 3:05 PM EDT Body Mass Index 26.41 02/01/2025 3:05 PM EDT documented in this encounter Plan of Treatment Scheduled Orders Name Type Priority Associated Diagnoses Orde r Schedule CBC auto differential Lab Routine Dyspepsia Expected: 02/01/2025 (Approximate), Expires: 02/01/2026 Sed Rate by Modified [place] Lab Routine Dyspepsia Expected: 02/01/2025, Expires: 02/01/2026 C-reactive Protein Lab Routine Dyspepsia Expected: 02/01/2025 (Approximate), Expires: 02/01/2026 Helicobacter pylori Antigen, EIA, Stool Lab Routine Dyspepsia Expected: 02/01/2025, Expires: 02/01/2026 Comprehensive Metabolic Panel Lab Routine Dyspepsia Expected: 02/01/2025 (Approximate), Expires: 02/01/2026 documented as of this encounter Visit Diagnoses Diagnosis Dyspepsia- Primary Dyspepsia and other specified disorders of function of stomach Constipation, unspecified constipation type documented in this encounter Additional Health Concerns Assessment Noted Time PHQ-9 Depression Total Score: 0 03/02/20 23 3:34 PM EST documented as of this encounter Care Teams Waiter/Waitress Cafeteria Relationship Specialty Start Date End Date Desirae Claros FNP [address] [place] [phone] PCP - General Family Medicine 06/16/22 documented as of this encounter
--- OUTSIDE RECORDS SUMMARY | 2025-02-01 15:48 | XMS_ITS | Clinical Summary ---
Author Organization [employer] Address [address] [place] [address] 7 [place] [address] Care Team Providers Care Systems Analyst Name Role Phone Desirae Claros PREDICTIVE MAINTENANCE TECHNICIAN Primary Care Provider [phone] Allergies No known active allergies Medications cyclobenzaprine (Flexeril) 5 MG tabletIndications :Acute bilateral low back pain without sciatica Take 1-2 tablets by oral route every 8 hours as needed for muscle spasm 30 tablet 3 Active fluticasone (Flonase) 50 MCG/ACT nasal sprayIndications: Less than 8 weeks gestation of Administer 1-2 sprays into each nostril in the morning. Shake gently. Before first use, prime pump. After use, clean tip and replace cap. 16 g 2 3 Active albuterol 108 (90 Base) MCG/ACT inhalerIndication s:Less than 8 weeks gestation of Inhale 2 puffs every 6 (six) hours if needed for wheezing. 18 g 11 3 Active Riboflavin 400 MG capsuleIndication s:Nonintractable episodic headache, unspecified headache type Take 1 capsule by oral route daily 90 capsule 1 3 Active Magnesium 400 MG capsuleIndication s:Nonintractable episodic headache, unspecified headache type Take 1 capsule by oral route daily 90 capsule 1 3 Active Vit-Fe Tcj-NO-Wsder ( Formula) 28-0.8-235 MG capsuleIndication s:Less than 8 weeks gestation of TAKE 2 CAPSULES BY MOUTH EVERY DAY 60 capsule 3 3 Active omeprazole OTC (PriLOSEC OTC) 20 MG EC tabletIndications :Dyspepsia Take 1 tablet (20 mg) by mouth before breakfast. Do not crush, chew, or split. 30 tablet 11 5 02/02/20 26 Active polyethylene glycol, PEG, 3350 (MiraLax) 17 GM/SCOOP powderIndications :Constipation, unspecified constipation type Take 17 g by mouth Once per day. 527 g 5 Active senna (Senokot) 8.6 MG tabletIndications :Constipation, unspecified constipation type Take 1 tablet (8.6 mg) by mouth at bedtime. 120 tablet 5 Active Active Problems Problem Noted Date Diagnosed Date LLQ abdominal pain 09/29/2024 Assessment & Plan (09/29/2024 11:52 AM EDT): Patient here with c/o new onset of moderate to severe LLQ abdominal pain and left sided pelvic pain x 4 days, intensity 7/10. Seen at [facility] widwives ordered to have a pelvic US, patient did not want to wait and did not have it done. On exam today she has severe tenderness to palpation on her LLQ and suprapubic area. Etiology ? Acute diverticulitis, Ovarian pathology or even nephrolithiasis need to be rule out. Pt is on Depo Provera. U/A showed trace blood neg test Plan: Discussed with patient that the most important thing is to rule these etiologies out today. She will need to have an abd/pelvic CT/US and some basic blood work. Pt agreeable with plan, will present herself to [facility] ER depression 03/02/2023 03/02/2023 Anxiety and depression 03/02/2023 3 with 32 completed weeks gestation 02/0303/02/2023 Size of fetus inconsistent with dates in third t rimester 03/02/2023 03/02/2023 History of delivery 03/02/202302/03 Overview (03/02/2023): pprom 33+5 with at 34 wks on 04/03/2020Spontaneous at 36w per patient hx History of gestational diabetes 03/02/2023 03/02/2023 Anemia 03/02/2023 03/02/2023 Overview (03/02/2023): iron infusions with in past Acute URI 01/27/2023 Acute bilateral low back pain without sciatica 0 12/07/2022 Assessment & Plan (12/07/2022 3:40 PM EDT): Apply heat on affected area I gave patient excuse letter for work form 11/29 to 12/13/22 after this she will have to f/u with PCP if she needs to extend her absence History of COVID-19 08/02/2022 Poor vision 01/07/2015 03/02/2023 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 Resolved Problems Problem Noted Date Diagnosed Date Resolved Date Mixed anxiety and depressive disorder 04/17/2014 03/02/2023 Encounters Date Type Department Care Team Description 02/01/2025 3:00 PM EDT Office Visit [facility] [address] [place] [id number] Desirae Claros FNP Dyspepsia (Primary Dx); Constipation, unspecified constipation type 02/01/2025 Travel 12/31/[address] [address] Desirae Claros FNP No Show 12/28/[address] [address] Desirae Claros FNP Chart Prep 12/24/2024 Patient Outreach [address] [address] Desirae Claros FNP Pre-visit Planning ((Unable to reach for PVP screening, LVM) to be completed in office ) 11/02/[address] [address] Desirae Claros FNP Care Management ([facility] graduation) from Last 3 Months Immunizations Immunization Administration Dates Next Due DTaP 05/23/2001, 9,1997,08/01,1997 HPV, Quadrivalent 11/27/2013,09/22/2012,03/26/20 11 Hep A, ped/adol, 2 dose 11/27/2013,09/22/2012 Hep B, Adolescent or Pediatric 07/15/1998,1997,1997 Hib (HbOC) 07/15/1998, 8,1997,05/28 IPV 05/23/2001, 8,1997,05/28 Influenza, IIV3, injectable 06/23/2021 MMR 07/22/2018,07/21/1999,07/15/1998 Meningococcal MCV4P ACYW-135 11/27/2013 TD (adult), 2 Lf tetanus tox oid, preservative free, adsorbed 01/03/2020 Tdap 03/25/2020,11/09/2008 Varicella 12/20/2008,07/21/1999 Social History Tobacco Use Types Packs/Day Years [...] Orientation Straight 02/01/2022 10 :18 AM EDT Last Filed Vital Signs Vital Sign Reading Time Taken Comments Blood Pressure 118/84 02/01/2025 3:05 PM EDT Pulse 90 02/01/2025 3:05 PM EDT Temperature 36.4 C (97.5 F) 09/29/2024 11:24 AM EDT Respiratory Rate 18 02/01/2025 3:05 PM EDT Oxygen Saturation 98% 09/29/2024 11: 24 AM EDT Inhaled Oxygen Concentration - - Weight 63.4 kg (139 lb 12.8 oz) 02/01/2025 3:05 PM EDT Height 154.9 cm (5' 1 ) 02/01/2025 3:05 PM EDT Body Mass Index 26.41 02/01/2025 3:05 PM EDT Plan of Treatment Health Maintenance Due Date Last Done Comments Disability Screening 1997 Alcohol/Substance Use Screening 2009 Family Planning (PISQ) 2012 HPV/Cotest 10/28/2022 Pap Smear 10/28/2022 10/29/2019 Depression Screening 03/02/2024 03/02/2023, 03/02/20 23 SDOH Screening 10/17/2024 10/18/2023 COVID-19 Vaccine ( season) 2024 06/23/2021, 01/07/2021, 12/17/2020 Influenza Vaccine (#1) 2024 06/23/2021 Tobacco Screening 09/29/2025 09/29/2024 DTaP/Tdap/Td Vaccines (10 - Td or Tdap) 08/21/2033 08/22/2023, 03/25/2020, 01/03/2020, Additional history exists Zoster Vaccines (1 of 2) 2047 RSV Patients and Patients Aged 60 years or older (1 - 1-dose 75+ series) 2072 HIB Vaccines Completed 07/15/1998, 12/04, 1997, Additional history exists Hepatitis B Vaccines Completed 07/15/1998, 1997, 1997 IPV Vaccines Completed 05/23/2001, 12/04, 1997, Additional history exists HPV Vaccines Completed 11/27/2013, 09/03, 03/26/2011 Hepatitis A Vaccines Completed 11/27/2013, 11/27/2013, 09/22/2012, Additional history exists Meningococcal Vaccine Completed 11/27/2013, 014 HIV Screening Completed 11/19/2022 Hepatitis C Screening Completed 11/19/2022 Meningococcal B Vaccine Aged Out No l onger eligible based on patient's age to complete this topic Pneumococcal Vaccine: Pediatrics (0 to 5 Years) and At-Risk Patients (6 to 49) Years Aged Out No longer eligible based on patient's age to complete this topic RSV under 20 months Aged Out No longe r eligible based on patient's age to complete this topic Rotavirus Vaccines Aged Out No longer eligible based on patient's age to complete this topic Procedures Procedure Name Priority Date/Time Associated Diagnosis Comments HEPATITIS C ANTIBODY REFLEX Routine 11/19/2022 9:26 AM EDT HIV ANTIBODY/ANTIGEN ([place] [facility]) Routine 11/19/2022 9:26 AM EDT HM PAP/HPV Routine 10/29/2019 from Last 3 Months or Most Recently Relevant to Health Maintenance Results * Hepatitis C Antibody Reflex (11/19/2022 9:26 AM EDT) Hepatitis C Antibody Nonreactive Nonreactive [facility] Comment:Antibodies to HCV no t detected; does not exclude early acuteHCV infection. 11/19/2022 9:26 AM EDT 11/19/2022 11:13 AM EDT Angela Olvera [facility] BLOOD ORDERABLES Final Resul t Performing Organization Address [facility] Co de Phone Number [facility] [address] [place] [address] [phone] * HIV Ab/Ag (JEFE JOY) (11/19/2022 9:26 AM EDT) HIV AB/AG Nonreactive Nonreactive [facility] Comment:HIV-1 p24 Ag and/or HIV-1/HIV-2 Ab not detected.A test result that is nonreactive does not exclude thepossibility of exposure to or infection with HIV-1 and/orHIV-2. Nonreactive results in this assay for individualswith prior exposure to HIV-1 and/or HIV-2 may be due toantigen and antibody levels that are below the limit ofdetection of this assay.[employer] HIV Ag/Ab Combo assay result andsupplemental assay results should be interpreted inconjunction with the patient's clinical presentation,history and other laboratory results. If the results areinconsistent with clinical evidence, additional testing issuggested to confirm the result. 11/19/2022 9:26 AM EDT 11/19/2022 11:13 AM EDT Result [facility] Angela Olvera [facility] BLOOD ORDERABLES Final Resul t Performing Organization Address [facility] de Phone Number [facility] [address] [place] [address] [phone] * Hm Pap Smear (10/29/2019) Pap Negative for intraephithelial lesion or malignancy Negative for intraephithelial lesion or malignancy, Other Result [facility] Historical Provider HEALTH MAINTENANCE Final Result from Last 3 Months or Most Recently Relevant to Health Maintenance Insurance [facility] [address] Care Teams Systems Analyst Relationship Specialty Start Date End Date Desirae Claros FNP [address] [place] [address] PCP - General Family Medicine 06/16/22
--- OUTSIDE RECORDS SUMMARY | 2025-02-01 15:49 | XMS_ITS | Encounter Summary ---
Author Organization [employer] Address [address] [facility] [address] [place] [address] Care Team Providers Care Legal Cashier Name Role Phone Desirae Claros SCIENCE INTERPRETER Primary Care Provider [phone] Encounter Details Date Type Department Care Team (Latest Contact Info) Description 02/01/2025 Travel Social History Tobacco Use Types Packs/Day Years [...] as of this encounter Plan of Treatment Not on file documented as of this encounter Visit Diagnoses Not on filedocumented in this encounter Additional Health Concerns Assessment Noted Time PHQ-9 Depression Total Score: 0 03/02/20 23 3:34 PM EST documented as of this encounter Care Teams Legal Cashier Relationship Specialty Start Date End Date Desirae Claros FNP [address] [place] [phone] PCP - General Family Medicine 06/16/22 documented as of this encounter
--- OUTSIDE RECORDS SUMMARY | 2025-02-01 15:49 | XMS_ITS | Clinical Summary ---
Author Organization [facility] Address [address] [place] [address] Care Team Providers Care Coke Drawer Hand Name Role Phone Unavailable Primary Care Provider Unavailabl e Allergies No known active allergies Social History Tobacco Use Types Packs/Day Years Used Date Smoking Tobacco: Never Assessed Comments Unknown Sex and Gender Information Value Date Recorded Sex Assigned at Female 04/11/2022 5:26 AM EST Legal Sex Female 3:53 AM EST Gender Identity Female 04/11/2022 5:26 AM EST Sexual Orientation Heterosexual (straight) 04/11 5:26 AM EST Last Filed Vital Signs Vital Sign Reading Time Taken Comments Blood Pressure 110/60 04/11/2022 6:36 AM EST Pulse 101 04/11/2022 6:36 AM EST Temperature 36.9 C (98.5 F) 04/11/2022 4:15 AM EST Respiratory Rate 18 04/11/2022 6:36 AM EST Oxygen Saturation 97% 04/11/2022 6:36 AM EST Inhaled Oxygen Concentration - - Weight - - Height - - Body Mass Index - - Plan of Treatment Health Maintenance Due Date Last Done Comments Hepatitis C Virus Screening 1997 HIV Screening 2010 DTaP/Tdap/Td Vaccines (1 - Tdap) 2016 Hepatitis B Vaccines (1 of 3 - 19+ 3-dose series) 2016 Pap Smear (Ages 21-65) 2018 Influenza Vaccine 11/02/2024 COVID-19 Vaccine (1 - 2023-2 5 season) 2024 HPV Vaccines (No Doses Required) Completed Pneumococcal Vaccine: Pediat angela (0-5 Years) and At-Risk Patients (6 to 49 Years) Aged Out No longer eligible b ased on patient's age to complete this topic Insurance [facility]
[2025-02-01 18:04] LABS: MANUAL DIFF FLAG NO
[2025-02-01 18:17] LABS: Hematocrit 40.0 % (37.0-47.0); Hemoglobin 12.7 g/dl (12.0-16.0); Imm Gran Abs Auto 0.07 X10*3/uL (0.00-0.03); Imm Gran Pct Auto 0.9 % (0.0-0.4); Lymphocytes Absolute Auto 2.1 X10*3/uL (1.2-4.9); Mean Corpuscular HGB Conc 31.8 g/dl (31.0-35.0); Mean Corpuscular Hemoglobin 25.9 pg (27.0-33.0); Mean Corpuscular Volume 81.5 fL (80.0-98.0); NRBC Abs Auto 0.000 X10*3/uL (0.0-0.012); NRBC Pct Auto 0.0 /100WBC (0.0-0.2); Platelet Count 182 X10*3/uL (160-400); Red Blood Count 4.91 X10*6/uL (4.20-5.50); White Blood Count 7.9 X10*3/uL (4.8-10.8)
[2025-02-01 18:22] LABS: Alanine Aminotransferase 18 U/L (0-31); Albumin Level 4.9 g/dL (3.5-5.0); Alkaline Phosphatase 66 U/L (39-117); Anion Gap 11 (12-20); Aspartate Amino Transferase 21 U/L (5-31); Blood Urea Nitrogen 12 mg/dL (9-16); Calcium 9.3 mg/dL (8.4-10.2); Carbon Dioxide 25 mmol/L (22-29); Chloride 106 mmol/L (96-108); Estimated Glomerular Filt Rate > 60; Potassium 3.8 mmol/L (3.3-5.1); Sodium 138 mmol/L (135-145); Total Protein 7.5 g/dL (6.5-8.0)
== END 2025-02-01 15:44 | disposition home or self-care (01) ==
LOC: HO.HHCL 15:43
PROVIDERS: PCP Registered Nurse; Visit Provider Registered Nurse
DX: R10.13 Epigastric pain (principal)
CPT/HCPCS: 36415; 80053; 85025; 85652; 86140